=== PATIENT | male | born 1980 | race Caucasian/White ===

== ENCOUNTER 2019-07-11 19:20 | Emergency (ER) | payer OTHER ==
[2019-07-11 19:25] VITALS: RESP 18
[2019-07-11] MEDS ORDERED: MORPHINE SULFATE 4 MG/ML SYRINGE IM STA (19:40)
--- NOTE | 2019-07-11 19:48 | ED ---
Abdominal Pain HPI - General Chief Complaint: Abdominal Pain Stated Complaint: Groin Pain Time Seen by Provider: 07/11/19 19:27 Source: patient Mode of arrival: wheelchair Limitations: no limitations - History of Present Illness Initial Comments: Patient is a 38-year-old male presenting to the emergency Department with complaints of right-sided lower quadrant pain has been increasing throughout today. Patient states he has had mild pain in the same area for many years secondary to a small hernia. Patient states the last month he feels like the pain has been increasing after he is lifting heavy things at work. Patient states then today he has been having severe right groin pain and it is not going away. He denies fever, chills, vomiting, diarrhea. He does admit to history of appendectomy, no other abdominal surgeries. He has no other complaints. Upon arrival to the ER, patient was slightly tachycardia otherwise normal vitals. - Related Data Allergies Allergy/AdvReac Type Severity Reaction Status Date / Time No Known Allergies Allergy Verified 07/11/19 19:25 Review of Systems ROS Statement: Those systems with pertinent positive or pertinent negative responses have been documented in the HPI. ROS Other: All systems not noted in ROS Statement are negative. Past Medical History Additional Past Medical History / Comment(s): HEP C. History of Any Multi-Drug Resistant Organisms: None Reported Additional Past Surgical History / Comment(s): orthopedic surgery Past Psychological History: No Psychological Hx Reported Smoking Status: Current every day smoker Past Alcohol Use History: None Reported Past Drug Use History: None Reported General Exam - General Exam Comments Initial Comments: GENERAL: Patient was teary eyed during exam, in mild distress. HEAD: Atraumatic, normocephalic. EYES: Pupils equal round and reactive to light, extraocular movements intact, sclera anicteric, conjunctiva are normal. ENT: TMs normal, nares patent, oropharynx clear without exudates. Moist mucous membranes. NECK: Normal range of motion, supple without lymphadenopathy or JVD. LUNGS: Breath sounds clear to auscultation bilaterally and equal. No wheezes rales or rhonchi. HEART: Regular rate and rhythm without murmurs, rubs or gallops. ABDOMEN: No abdominal tenderness. Soft, normoactive bowel sounds. No guarding, no rebound. No masses appreciated. : Tenderness into the right groin, no scrotal swelling or erythema. EXTREMITIES: Normal range of motion, no pitting or edema. No clubbing or cyanosis. NEUROLOGICAL: Cranial nerves II through XII grossly intact. Normal speech, normal gait. PSYCH: Normal mood, normal affect. SKIN: Warm, Dry, normal turgor, no rashes or lesions noted. Limitations: no limitations Course Vital Signs 07/11/19 07/11/19 19:21 21:56 Temperature 98.4 F 98 F Pulse Rate 102 H 98 Respiratory 18 18 Rate Blood Pressure 114/80 120/79 O2 Sat by Pulse 99 99 Oximetry Medical Decision Making - Medical Decision Making Patient is a 38-year-old male here for severe right groin pain as been increasing throughout today. He has a history of a mild hernia for many years, as well as appendectomy. Vitals are stable. Ultrasound reveals 2 benign- appearing right groin lymph nodes, no concerning mass or fluid collection. No bowel containing hernia noted. He was given pain control. He states his pain is improved. I discussed with patient that he needs to follow-up with surgery for possible hernia repair. He is in agreement this plan. He is stable for discharge. Case discussed with Dr. Tineo. Disposition Clinical Impression: Right groin pain Disposition: HOME SELF-CARE Condition: Stable Instructions (If sedation given, give patient instructions): Inguinal Hernia (ED) Additional Instructions: Please return to the Emergency Department if symptoms worsen or any other concerns. Is patient prescribed a controlled substance at d/c from ED?: No Referrals: None,Stated [Primary Care Provider] - 1-2 days Darren Whitt MD [Medical Doctor] - 1-2 days
--- NOTE | 2019-07-11 20:36 | US ---
EXAMINATION TYPE: US groin RT DATE OF EXAM: 07/11/2019 COMPARISON: NONE CLINICAL HISTORY: severe pain, possible hernia. Severe pain x 2 months intermittently. Constant pain x 1 day. Possible hernia per order. Appendectomy in 1999. Scanned area of pain right groin. Two hypoechoic areas seen with hyperechoic centers in the right vera in. #1 measures: 0.7 x 0.8 x 0.6 cm. #2 measures: 1.5 x 0.9 x 0.4 cm. Scanned left groin for comparison. No other findings by ultrasound at this time. Technologist tabares two prominent but benign-appearing right groin lymph nodes. No concerning mass or fluid collection. No bowel containing hernia noted. IMPRESSION: As above.
[2019-07-11 21:57] VITALS: BP 120/79; PULSE 98; TEMP 98
== END 2019-07-11 21:58 | disposition home or self-care (01) ==
LOC: EC 19:20
DX: R10.31 Right lower quadrant pain (principal); R59.0 Localized enlarged lymph nodes; B19.20 Unspecified viral hepatitis C without hepatic coma; F17.200 Nicotine dependence, unspecified, uncomplicated; Z98.890 Other specified postprocedural states; Z87.19 Personal history of other diseases of the digestive system; Z90.89 Acquired absence of other organs
CPT/HCPCS: 76882; 96372; 99284; J2270

== ENCOUNTER 2019-07-16 19:25 | Emergency (ER) | payer OTHER ==
[2019-07-16 19:30] VITALS: TEMP 97.9
[2019-07-16] MEDS ORDERED: SODIUM CHLORIDE 0.9% 1,000 ML IV STA (19:42)
[2019-07-16] MEDS ORDERED: ONDANSETRON 4 MG/2 ML VIAL IVP STA (19:42)
[2019-07-16] MEDS ORDERED: HYDROmorphone 0.5 MG/0.5 ML SYRINGE IVP STA ×2 (19:42→20:17)
--- NOTE | 2019-07-16 20:07 | ED ---
Abdominal Pain HPI - General Chief Complaint: Abdominal Pain Stated Complaint: Abdominal Pain Time Seen by Provider: 07/16/19 19:36 Source: patient, RN notes reviewed Mode of arrival: wheelchair Limitations: no limitations - History of Present Illness Initial Comments: 38-year-old male presents emergency Department chief complaint of severe right testicular pain, right groin pain. Patient states she was seen here few days ago was told that he had a hernia. Patient states that today he's had worsening waxing and waning pain. Patient states that he has no dysuria no hematuria denies any history kidney stone. Patient states she has some pain and rates up into his abdomen. Denies any trauma today. He's had a prior appendectomy return or who the surgeon was. Patient denies any back pain. - Related Data Previous Rx's Medication Instructions Recorded Doxycycline Monohydrate [Monodox] 100 mg PO Q12HR #20 cap 07/16/19 Ibuprofen [Motrin] 600 mg PO Q8HR PRN #20 tab 07/16/19 Allergies Allergy/AdvReac Type Severity Reaction Status Date / Time No Known Allergies Allergy Verified 07/16/19 19:34 Review of Systems ROS Statement: Those systems with pertinent positive or pertinent negative responses have been documented in the HPI. ROS Other: All systems not noted in ROS Statement are negative. Past Medical History Additional Past Medical History / Comment(s): HEP C. History of Any Multi-Drug Resistant Organisms: None Reported Additional Past Surgical History / Comment(s): orthopedic surgery Past Psychological History: No Psychological Hx Reported Smoking Status: Current every day smoker Past Alcohol Use History: None Reported Past Drug Use History: None Reported General Exam Limitations: no limitations General appearance: alert, in no apparent distress Head exam: Present: atraumatic, normocephalic, normal inspection Eye exam: Present: normal appearance, PERRL, EOMI. Absent: scleral icterus, conjunctival injection, periorbital swelling Respiratory exam: Present: normal lung sounds bilaterally. Absent: respiratory distress, wheezes, rales, rhonchi, stridor Cardiovascular Exam: Present: regular rate, normal rhythm, normal heart sounds. Absent: systolic murmur, diastolic murmur, rubs, gallop, clicks GI/Abdominal exam: Present: soft, tenderness, normal bowel sounds. Absent: distended, guarding, rebound, rigid exam: Present: testicular tenderness (Right), scrotal swelling. Absent: normal inspection Back exam: Absent: CVA tenderness (R), CVA tenderness (L) Neurological exam: Present: alert, oriented X3 Course Vital Signs 07/16/19 19:27 Temperature 97.9 F Pulse Rate 102 H Respiratory 20 Rate Blood Pressure 122/70 O2 Sat by Pulse 99 Oximetry Medical Decision Making - Medical Decision Making 38-year-old male presented for severe right groin right testicular pain. Patient had recent ultrasound which was reviewed and negative for any acute findings in his groin. Also scrotum shows enlarged epididymis otherwise normal blood flow. CT obtained due to ongoing symptoms no acute findings. Symptoms may related to epididymitis. Patient will be provided antibiotics, pain control return parameters were discussed. - Lab Data Result diagrams: 07/16/19 19:56 07/16/19 19:56 Lab Results 07/16/19 07/16/19 07/16/19 Range/Units 19:56 19:56 19:56 WBC 8.1 (3.8-10.6) k/uL RBC 4.75 (4.30-5.90) m/uL Hgb 14.8 (13.0-17.5) gm/dL Hct 42.9 (39.0-53.0) % MCV 90.3 (80.0-100.0) fL MCH 31.1 (25.0-35.0) pg MCHC 34.4 (31.0-37.0) g/dL RDW 12.7 (11.5-15.5) % Plt Count 330 (150-450) k/uL Neutrophils % 64 % Lymphocytes % 27 % Monocytes % 5 % Eosinophils % 2 % Basophils % 1 % Neutrophils # 5.2 (1.3-7.7) k/uL Lymphocytes # 2.2 (1.0-4.8) k/uL Monocytes # 0.4 (0-1.0) k/uL Eosinophils # 0.2 (0-0.7) k/uL Basophils # 0.1 (0-0.2) k/uL Sodium 136 L (137-145) mmol/L Potassium 3.8 (3.5-5.1) mmol/L Chloride 105 (98-107) mmol/L Carbon Dioxide 24 (22-30) mmol/L Anion Gap 7 mmol/L BUN 13 (9-20) mg/dL Creatinine 0.73 (0.66-1.25) mg/dL Est GFR (CKD-EPI)AfAm >90 (>60 ml/min/1.73 sqM) Est GFR (CKD-EPI)NonAf >90 (>60 ml/min/1.73 sqM) Glucose 184 H (74-99) mg/dL Plasma Lactic Acid Maurice 1.9 (0.7-2.0) mmol/L Calcium 9.5 (8.4-10.2) mg/dL Total Bilirubin 0.5 (0.2-1.3) mg/dL AST 43 (17-59) U/L ALT 77 H (4-49) U/L Alkaline Phosphatase 88 (38-126) U/L Total Protein 6.9 (6.3-8.2) g/dL Albumin 4.2 (3.5-5.0) g/dL Lipase 84 (23-300) U/L Urine Color Urine Appearance (Clear) Urine pH (5.0-8.0) Ur Specific Stephenson (1.001-1.035) Urine Protein (Negative) Urine Glucose (UA) (Negative) Urine Ketones (Negative) Urine Blood (Negative) Urine Nitrite (Negative) Urine Bilirubin (Negative) Urine Urobilinogen (<2.0) mg/dL Ur Leukocyte Esterase (Negative) Urine RBC (0-5) /hpf Urine WBC (0-5) /hpf Amorphous Sediment (None) /hpf 07/16/19 Range/Units 21:05 WBC (3.8-10.6) k/uL RBC (4.30-5.90) m/uL Hgb (13.0-17.5) gm/dL Hct (39.0-53.0) % MCV (80.0-100.0) fL MCH (25.0-35.0) pg MCHC (31.0-37.0) g/dL RDW (11.5-15.5) % Plt Count (150-450) k/uL Neutrophils % % Lymphocytes % % Monocytes % % Eosinophils % % Basophils % % Neutrophils # (1.3-7.7) k/uL Lymphocytes # (1.0-4.8) k/uL Monocytes # (0-1.0) k/uL Eosinophils # (0-0.7) k/uL Basophils # (0-0.2) k/uL Sodium (137-145) mmol/L Potassium (3.5-5.1) mmol/L Chloride (98-107) mmol/L Carbon Dioxide (22-30) mmol/L Anion Gap mmol/L BUN (9-20) mg/dL Creatinine (0.66-1.25) mg/dL Est GFR (CKD-EPI)AfAm (>60 ml/min/1.73 sqM) Est GFR (CKD-EPI)NonAf (>60 ml/min/1.73 sqM) Glucose (74-99) mg/dL Plasma Lactic Acid Maurice (0.7-2.0) mmol/L Calcium (8.4-10.2) mg/dL Total Bilirubin (0.2-1.3) mg/dL AST (17-59) U/L ALT (4-49) U/L Alkaline Phosphatase (38-126) U/L Total Protein (6.3-8.2) g/dL Albumin (3.5-5.0) g/dL Lipase (23-300) U/L Urine Color Light Yellow Urine Appearance Cloudy (Clear) Urine pH 8.0 (5.0-8.0) Ur Specific Stephenson 1.013 (1.001-1.035) Urine Protein Negative (Negative) Urine Glucose (UA) Negative (Negative) Urine Ketones Negative (Negative) Urine Blood Negative (Negative) Urine Nitrite Negative (Negative) Urine Bilirubin Negative (Negative) Urine Urobilinogen <2.0 (<2.0) mg/dL Ur Leukocyte Esterase Negative (Negative) Urine RBC 2 (0-5) /hpf Urine WBC 4 (0-5) /hpf Amorphous Sediment Rare H (None) /hpf Disposition Clinical Impression: Right groin pain, Epididymitis Disposition: HOME SELF-CARE Condition: Stable Instructions (If sedation given, give patient instructions): Epididymitis (ED) Additional Instructions: Please return to the Emergency Department if symptoms worsen or any other co ncerns. Prescriptions: Doxycycline Monohydrate [Monodox] 100 mg PO Q12HR #20 cap Ibuprofen [Motrin] 600 mg PO Q8HR PRN #20 tab PRN Reason: Pain Is patient prescribed a controlled substance at d/c from ED?: No Referrals: None,Stated [Primary Care Provider] - 1-2 days Time of Disposition: 21:53
[2019-07-16 20:10] LABS: Basophils # (A) 0.1 k/uL (0-0.2); Basophils % (A) 1 %; Eosinophils # (A) 0.2 k/uL (0-0.7); Eosinophils % (A) 2 %; HCT 42.9 % (39.0-53.0); HGB 14.8 gm/dL (13.0-17.5); Lymphocytes # (A) 2.2 k/uL (1.0-4.8); Lymphocytes % (A) 27 %; MCH 31.1 pg (25.0-35.0); MCHC 34.4 g/dL (31.0-37.0); MCV 90.3 fL (80.0-100.0); Mean Platelet Volume 7.5; Monocytes # (A) 0.4 k/uL (0-1.0); Monocytes % (A) 5 %; Neutrophils # (A) 5.2 k/uL (1.3-7.7); Neutrophils % (A) 64 %; Platelet Count 330 k/uL (150-450); RBC 4.75 m/uL (4.30-5.90); RDW 12.7 % (11.5-15.5); WBC 8.1 k/uL (3.8-10.6)
[2019-07-16 20:19] LABS: ALT 77 U/L (4-49); AST 43 U/L (17-59); African American GFR (CKD) >90 (>60 ml/min/1.73 sqM); Albumin 4.2 g/dL (3.5-5.0); Alkaline Phosphatase 88 U/L (38-126); Anion Gap 7 mmol/L; Blood Urea Nitrogen 13 mg/dL (9-20); Calcium 9.5 mg/dL (8.4-10.2); Carbon Dioxide 24 mmol/L (22-30); Chloride 105 mmol/L (98-107); Glucose 184 mg/dL (74-99); Non-African American GFR(CKD) >90 (>60 ml/min/1.73 sqM); Potassium 3.8 mmol/L (3.5-5.1); Sodium 136 mmol/L (137-145); Total Bilirubin 0.5 mg/dL (0.2-1.3); Total Protein 6.9 g/dL (6.3-8.2)
--- NOTE | 2019-07-16 21:08 | US ---
EXAMINATION TYPE: US scrotum with doppler. Grayscale and color Doppler Duplex imaging performed of t gonzalez scrotum. DATE OF EXAM: 07/16/2019 COMPARISON: US Groin CLINICAL HISTORY: Extreme right testicular pain. Extreme right testicular pain. Hx appendectomy. EXAM MEASUREMENTS: TESTICLES: Right Testicle: 4.8 x 3.3 x 2.2 cm Left Testicle: 4.6 x 3.1 x 2.4 cm EPIDIDYMIS HEAD: Right Epididymis: 1.2 x 1.5 x 0.8 cm Left Epididymis: 1.2 x 1.7 x 0.7 cm Doppler performed to assess for testicular vascularity; bilateral color flow and waveforms are seen. Presence of hydroceles: Right measurin.2 x 0.9 x 0.7 cm. Presence of varicoceles: Vessels measure up to 1.5 mm on the right and 2.5 mm on the left. Left testicle appears hyperechoic in comparison to right testicle. Epididymis seen laterally appears enlarged and heterogeneous bilaterally. Testicles appear slightly enlarged bilaterally. IMPRESSION: No testicular torsion or mass. Left and right epididymis are upper limit of normal size. I do not see an asymmetric abnormality. Epididymitis not excluded.
[2019-07-16 21:15] LABS: Amorphous Sediment,Urine Rare /hpf; Appearance,Urine Cloudy (Clear); Bilirubin,Urine Negative (Negative); Blood,Urine Negative (Negative); Color,Urine Light Yellow; Glucose,Urine (UA) Negative (Negative); Ketones,Urine Negative (Negative); Leukocyte Esterase,Urine Negative (Negative); Nitrite,Urine Negative (Negative); Protein,Urine Negative (Negative); RBC,Urine 2 /hpf (0-5); Specific Gravity,Urine 1.013 (1.001-1.035); Urobilinogen,Urine <2.0 mg/dL (<2.0); WBC,Urine 4 /hpf (0-5)
--- NOTE | 2019-07-16 21:50 | CT ---
EXAMINATION TYPE: CT abdomen pelvis w con DATE OF EXAM: 07/16/2019 COMPARISON: None HISTORY: Abdominal pain x1 year CT DLP: 743.9 mGycm Automated exposure control for dose reduction was used. CONTRAST: Performed with IV Contrast, patient injected with 100 mL of Isovue 300. Lung bases are clear. There is no pleural effusion. Heart size is normal. There is no pericardial eff usion. Liver spleen stomach gallbladder pancreas appear normal. Bile ducts are not dilated. There is no adrenal mass. Kidneys show satisfactory contrast opacification. There is no hydronephrosi s. There is normal excretion on the delayed images. Bladder distends smoothly. There is no inguinal h ernia. There is no free fluid in the pelvis. There is no mesenteric edema. There is no ascites or free air. There is no sign of a bowel obstructio n. Appendix is not seen. There is no sign of thickened appendix. The lumbar vertebra have normal spacing and alignment. Posterior elements are intact. There is no com pression fracture. The bony pelvis appears intact. IMPRESSION: Negative CT scan abdomen and pelvis.
[2019-07-16] MEDS ORDERED: cefTRIAXone IN SWFI 1,000 MG/10 ML SYRINGE IVP STA (21:51)
[2019-07-16] MEDS ORDERED: AZITHROMYCIN 250 MG TAB PO STA (21:51)
[2019-07-16] MEDS ORDERED: KETOROLAC 30 MG/ML 1 ML VIAL IVP STA (21:53)
[2019-07-16] MEDS ORDERED: ACET/COD 300 MG/30 MG STARTER PACK 6 TAB BTL PO STA (21:53)
[2019-07-16 22:35] VITALS: BP 122/73; PULSE 89; RESP 19
== END 2019-07-16 22:04 | disposition home or self-care (01) ==
LOC: EC 19:25
DX: N45.1 Epididymitis (principal); F17.200 Nicotine dependence, unspecified, uncomplicated
CPT/HCPCS: 36415; 80053; 83605; 83690; 85025; 81001; 93975; 76870; 74177; 99284; 96374; 96375 ×3; 96361 ×2; J2405; J0696; J1885; J1170; Q9967

== ENCOUNTER 2019-09-29 18:20 | Emergency (ER) | payer OTHER ==
[2019-09-29 18:32] VITALS: BP 108/70; PULSE 98; RESP 16; TEMP 98.6
[2019-09-29] MEDS ORDERED: KETOROLAC 60 MG/2 ML VIAL IM STA (18:48)
--- NOTE | 2019-09-29 18:54 | ED ---
General Adult HPI - General Chief complaint: Extremity Injury, Lower Stated complaint: [facility] - lt knee injury Time Seen by Provider: 09/29/19 18:44 Source: patient, RN notes reviewed Mode of arrival: ambulatory Limitations: no limitations - History of Present Illness Initial comments: Patient is a pleasant 38-year-old male presenting to the emergency Department with left knee pain. Patient was at work yesterday when he turned and had sudden discomfort of his left knee. Patient did feel a pop. Patient states walking down the steps today he felt a second pop. Patient has had significant discomfort. Discomfort is mild at rest but moderate to severe with movement of the knee. No history of chronic knee problems. No other area of injury or concern. No swelling. - Related Data Previous Rx's Medication Instructions Recorded Doxycycline Monohydrate [Monodox] 100 mg PO Q12HR #20 cap 07/16/19 Ibuprofen [Motrin] 600 mg PO Q8HR PRN #20 tab 07/16/19 Allergies Allergy/AdvReac Type Severity Reaction Status Date / Time No Known Allergies Allergy Verified 09/29/19 18:32 Review of Systems ROS Statement: Those systems with pertinent positive or pertinent negative responses have been documented in the HPI. ROS Other: All systems not noted in ROS Statement are negative. Constitutional: Denies: fever Eyes: Denies: eye pain ENT: Denies: ear pain Respiratory: Denies: cough Cardiovascular: Denies: chest pain Endocrine: Denies: fatigue Gastrointestinal: Denies: abdominal pain Genitourinary: Denies: dysuria Musculoskeletal: Reports: as per HPI, arthralgia. Denies: back pain Skin: Denies: rash Neurological: Denies: weakness Past Medical History Additional Past Medical History / Comment(s): HEP C. History of Any Multi-Drug Resistant Organisms: None Reported Additional Past Surgical History / Comment(s): orthopedic surgery Past Psychological History: No Psychological Hx Reported Past Alcohol Use History: None Reported Past Drug Use History: None Reported General Exam Limitations: no limitations General appearance: alert, in no apparent distress Head exam: Present: normocephalic Eye exam: Present: normal appearance Neck exam: Present: normal inspection Respiratory exam: Present: normal lung sounds bilaterally Cardiovascular Exam: Present: regular rate, normal rhythm Expanded Peripheral pulses: 2+: Dorsalis Pedis (L) GI/Abdominal exam: Present: soft. Absent: tenderness Extremities exam: Present: tenderness (Tenderness in the region of the medial meniscus.), other (Distally the extremity is neurovascular intact.). Absent: full ROM (Limited range of motion left knee secondary to pain.), calf tenderness Neurological exam: Present: alert. Absent: motor sensory deficit Psychiatric exam: Present: normal affect, normal mood Skin exam: Present: normal color Course Vital Signs 09/29/19 18:29 Temperature 98.6 F Pulse Rate 98 Respiratory 16 Rate Blood Pressure 108/70 O2 Sat by Pulse 97 Oximetry Medical Decision Making - Medical Decision Making Patient reevaluated and updated. Knee immobilizer ordered. - Radiology Data Radiology results: image reviewed (X-ray left knee reveals no acute process) Disposition Clinical Impression: Knee injury Disposition: HOME SELF-CARE Condition: Stable Instructions (If sedation given, give patient instructions): Knee Pain (ED) Additional Instructions: Please follow-up [facility] in the next day or 2 for recheck. [id number] Motrin as needed. Ice to affected area. Use knee immobilizer, provided. If symptoms continue you will likely need further evaluation including orthopedic evaluation or further imaging. Return for increased pain, swelling, fever, worsening or change in symptoms or other concerns. Is patient prescribed a controlled substance at d/c from ED?: No Referrals: Johnnie Guardado DO [Medical Doctor] - 1-2 days Time of Disposition: 20:07
--- NOTE | 2019-09-29 19:25 | XR ---
EXAMINATION TYPE: XR knee complete LT DATE OF EXAM: 09/29/2019 COMPARISON: NONE HISTORY: Knee pain TECHNIQUE: 3 views FINDINGS: I see no fracture nor dislocation. Joint spaces are normal. There is no sign of knee joint effusion. IMPRESSION: Negative left knee exam.
[2019-09-29] MEDS ORDERED: ACET/COD 300 MG/30 MG STARTER PACK 6 TAB BTL PO STA (20:07)
== END 2019-09-29 20:27 | disposition home or self-care (01) ==
LOC: EC 18:20
DX: S89.92XA Unspecified injury of left lower leg, initial encounter (principal); M25.562 Pain in left knee; X50.9XXA Other and unspecified overexertion or strenuous movements or postures, initial encounter; Y92.69 Other specified industrial and construction area as the place of occurrence of the external cause
CPT/HCPCS: 73562; 99283; 96372; L1830 ×2; J1885

== ENCOUNTER 2020-03-27 08:44 | Emergency (ER) | payer OTHER ==
[2020-03-27 08:53] VITALS: BP 128/80; PULSE 122; RESP 18; TEMP 98.4
--- NOTE | 2020-03-27 09:06 | ED ---
Upper Extremity HPI - General Chief Complaint: Extremity Injury, Upper Stated Complaint: slip & fall/elbow pain Time Seen by Provider: 03/27/20 08:53 Source: patient, RN notes reviewed Mode of arrival: ambulatory Limitations: no limitations - History of Present Illness Initial Comments: 39-year-old male presents emergency Department with chief complaint of left elbow injury. Patient states that he slipped on her driveway yesterday falling landing onto his left elbow on landscaping bricks. Patient states that it was sore but has worsened throughout the night. Patient states he bumped it on door this morning which increases pain, swelling. Patient is right-hand dominant no prior left elbow injuries. denies any paresthesias no other injuries noted from his fall. - Related Data Previous Rx's Medication Instructions Recorded Doxycycline Monohydrate [Monodox] 100 mg PO Q12HR #20 cap 07/16/19 Ibuprofen [Motrin] 600 mg PO Q8HR PRN #20 tab 07/16/19 Ibuprofen [Motrin] 600 mg PO Q8HR PRN #20 tab 03/27/20 Allergies Allergy/AdvReac Type Severity Reaction Status Date / Time No Known Allergies Allergy Verified 03/27/20 08:53 Review of Systems ROS Statement: Those systems with pertinent positive or pertinent negative responses have been documented in the HPI. ROS Other: All systems not noted in ROS Statement are negative. Past Medical History Additional Past Medical History / Comment(s): HEP C. History of Any Multi-Drug Resistant Organisms: None Reported Past Surgical History: Appendectomy Additional Past Surgical History / Comment(s): orthopedic surgery Past Psychological History: No Psychological Hx Reported Smoking Status: Current every day smoker Past Alcohol Use History: Rare Past Drug Use History: Marijuana General Exam Limitations: no limitations General appearance: alert, in no apparent distress Head exam: Present: atraumatic, normocephalic, normal inspection Eye exam: Present: normal appearance, PERRL, EOMI. Absent: scleral icterus, conjunctival injection, periorbital swelling ENT exam: Present: normal exam, normal oropharynx, mucous membranes moist Neck exam: Present: normal inspection, full ROM. Absent: tenderness, meningismus, lymphadenopathy Respiratory exam: Present: normal lung sounds bilaterally. Absent: respiratory distress, wheezes, rales, rhonchi, stridor Cardiovascular Exam: Present: normal rhythm, tachycardia, normal heart sounds. Absent: systolic murmur, diastolic murmur, rubs, gallop, clicks Extremities exam: Present: other (Left elbow there is moderate swelling, severe times with palpation, neurovascular intact left arm with equal radial pulses Refill less than 2 seconds of all digits, patient has limited range of motion of the left elbow secondary to pain there is no tenderness at the left distal forearm or shoulder.) Course Vital Signs 03/27/20 08:46 Temperature 98.4 F Pulse Rate 122 H Respiratory 18 Rate Blood Pressure 128/80 O2 Sat by Pulse 100 Oximetry Medical Decision Making - Medical Decision Making X-ray was reviewed and read by radiologist as no acute fracture. Patient to be discharged with anti-inflammatories will follow-up with orthopedics on Monday if no improvement return parameters were discussed. Disposition Clinical Impression: Fall, Left elbow contusion Disposition: HOME SELF-CARE Condition: Stable Instructions (If sedation given, give patient instructions): Contusion in Adults (ED) Additional Instructions: Please return to the Emergency Department if symptoms worsen or any other concerns. Prescriptions: Ibuprofen [Motrin] 600 mg PO Q8HR PRN #20 tab PRN Reason: Pain Is patient prescribed a controlled substance at d/c from ED?: No Referrals: None,Stated [Primary Care Provider] - 1-2 days Trey Chin MD [STAFF PHYSICIAN] - 1-2 days Time of Disposition: 09:27
--- NOTE | 2020-03-27 09:20 | XR ---
EXAMINATION TYPE: XR elbow complete LT DATE OF EXAM: 03/27/2020 COMPARISON: NONE HISTORY: Pain FINDINGS: Three views of the elbow demonstrate no pathologic joint effusion. The osseous structures are intact . There is no acute fracture or dislocation. Tiny olecranon spur. IMPRESSION: 1. No acute fracture or dislocation. If symptoms persist follow-up study in 7 to 10 days could be ob tained.
[2020-03-27] MEDS ORDERED: ACET/COD 300 MG/30 MG STARTER PACK 6 TAB BTL PO STA (09:25)
== END 2020-03-27 09:39 | disposition home or self-care (01) ==
LOC: EC 08:44
DX: S50.02XA Contusion of left elbow, initial encounter (principal); F17.200 Nicotine dependence, unspecified, uncomplicated; W00.0XXA Fall on same level due to ice and snow, initial encounter
CPT/HCPCS: 99283

== ENCOUNTER 2020-05-06 08:02 | Emergency (ER) | payer OTHER ==
[2020-05-06 08:16] VITALS: RESP 18
[2020-05-06] MEDS ORDERED: PHENAZOPYRIDINE 200 MG TAB PO STA (08:32)
--- NOTE | 2020-05-06 08:34 | ED ---
General Adult HPI - General Chief complaint: Urogenital Stated complaint: STD check Time Seen by Provider: 05/06/20 08:18 Source: patient, RN notes reviewed Mode of arrival: ambulatory Limitations: no limitations - History of Present Illness Initial comments: 39-year-old male presents emergency Department chief complaint of dysuria. Patient states started 4 days ago. Patient states she does have some penile drainage. Patient states it de anda constantly. Patient does admit to unprotected sex and concerned about possible STD including gonorrhea and chlamydia. Patient denies any lesions or sores on his penis. Patient denies any other complaints no abdominal pain no flank pain no fevers or chills. - Related Data Previous Rx's Medication Instructions Recorded Ciprofloxacin HCl [Cipro] 500 mg PO Q12HR #20 tablet 05/06/20 Allergies Allergy/AdvReac Type Severity Reaction Status Date / Time No Known Allergies Allergy Verified 05/06/20 09:01 Review of Systems ROS Statement: Those systems with pertinent positive or pertinent negative responses have been documented in the HPI. ROS Other: All systems not noted in ROS Statement are negative. Past Medical History Additional Past Medical History / Comment(s): HEP C. History of Any Multi-Drug Resistant Organisms: None Reported Past Surgical History: Appendectomy, Orthopedic Surgery Additional Past Surgical History / Comment(s): orthopedic surgery Past Psychological History: No Psychological Hx Reported Smoking Status: Current every day smoker Past Alcohol Use History: Rare Past Drug Use History: Marijuana General Exam Limitations: no limitations General appearance: alert, in no apparent distress Head exam: Present: atraumatic, normocephalic, normal inspection Eye exam: Present: normal appearance, PERRL, EOMI. Absent: scleral icterus, conjunctival injection, periorbital swelling Neck exam: Present: normal inspection. Absent: tenderness, meningismus, lymphadenopathy Respiratory exam: Present: normal lung sounds bilaterally. Absent: respiratory distress, wheezes, rales, rhonchi, stridor Cardiovascular Exam: Present: regular rate, normal rhythm, normal heart sounds. Absent: systolic murmur, diastolic murmur, rubs, gallop, clicks GI/Abdominal exam: Present: soft, normal bowel sounds. Absent: distended, tenderness, guarding, rebound, rigid exam: Present: urethral discharge, circumcision, other (Mild swelling just proximal to the glans, tattoo noted). Absent: testicular tenderness, scrotal swelling, vertical testicular lie Neurological exam: Present: alert Skin exam: Present: warm, dry, intact, normal color. Absent: rash Course Vital Signs 05/06/20 05/06/20 08:11 09:16 Temperature 98.5 F Pulse Rate 100 Respiratory 18 18 Rate Blood Pressure 134/85 O2 Sat by Pulse 98 Oximetry Medical Decision Making - Medical Decision Making Patient's urinalysis shows large amount of bacteria. Patient did have some unprotected sex and concern for STDs. Patient we treated for gonorrhea chlamydi a. Patient will be given 1 g for Rocephin for possible urinary tract infection. Patient will be discharged on ciprofloxacin return parameters discussed. - Lab Data Lab Results 05/06/20 Range/Units 08:44 Urine Color Yellow Urine Appearance Cloudy (Clear) Urine pH 6.5 (5.0-8.0) Ur Specific [place] 1.024 (1.001-1.035) Urine Protein Trace H (Negative) Urine Glucose (UA) Negative (Negative) Urine Ketones Negative (Negative) Urine Blood Small H (Negative) Urine Nitrite Negative (Negative) Urine Bilirubin Negative (Negative) Urine Urobilinogen 2.0 (<2.0) mg/dL Ur Leukocyte Esterase Large H (Negative) Urine RBC 13 H (0-5) /hpf Urine WBC >182 H (0-5) /hpf Urine WBC Clumps Few H (None) /hpf Urine Mucus Occasional H (None) /hpf Urine Sperm Rare (None) /hpf Disposition Clinical Impression: UTI (urinary tract infection) Disposition: HOME SELF-CARE Condition: Stable Instructions (If sedation given, give patient instructions): Urinary Tract Infection in Men (ED) Additional Instructions: Please return to the Emergency Department if symptoms worsen or any other concerns. Prescriptions: Ciprofloxacin HCl [Cipro] 500 mg PO Q12HR #20 tablet Is patient prescribed a controlled substance at d/c from ED?: No Referrals: None,Stated [Primary Care Provider] - 1-2 days Time of Disposition: 09:38
[2020-05-06 09:30] LABS: Appearance,Urine Cloudy (Clear); Bilirubin,Urine Negative (Negative); Blood,Urine Small (Negative); Color,Urine Yellow; Glucose,Urine (UA) Negative (Negative); Ketones,Urine Negative (Negative); Leukocyte Esterase,Urine Large (Negative); Mucus,Urine Occasional /hpf; Nitrite,Urine Negative (Negative); PH, Urine 6.5 (5.0-8.0); Protein,Urine Trace (Negative); RBC,Urine 13 /hpf (0-5); Specific Gravity,Urine 1.024 (1.001-1.035); Sperm,Urine Rare /hpf; WBC,Urine >182 /hpf (0-5)
[2020-05-06] MEDS ORDERED: cefTRIAXone 1,000 MG VIAL (IM USE) IM STA (09:37)
[2020-05-06] MEDS ORDERED: AZITHROMYCIN 250 MG TAB PO STA (09:37)
[2020-05-06 10:09] VITALS: BP 117/81; PULSE 85; TEMP 98.8
[2020-05-07 15:30] LABS: C. trachomatis,PCR Negative (Neg,Equiv); Chlamydia trachomatis Source Urine; N. gonorrhoeae,PCR Positive (Neg,Equiv); Neisseria Source Urine
== END 2020-05-06 10:15 | disposition home or self-care (01) ==
LOC: EC 08:02
DX: N39.0 Urinary tract infection, site not specified (principal); F17.200 Nicotine dependence, unspecified, uncomplicated; F12.90 Cannabis use, unspecified, uncomplicated; Z90.49 Acquired absence of other specified parts of digestive tract
CPT/HCPCS: 81001; 87491; 87591; 87086; 99283; 96372; J0696

== ENCOUNTER 2020-06-09 05:43 | Emergency (ER) | payer OTHER ==
[2020-06-09 06:06] VITALS: PULSE 120; RESP 36; TEMP 98.1
[2020-06-09 06:41] VITALS: BP 166/105
[2020-06-09] MEDS ORDERED: SODIUM CHLORIDE 0.9% 1,000 ML IV STA (06:55)
[2020-06-09] MEDS ORDERED: HYDROmorphone 0.5 MG/0.5 ML SYRINGE IVP STA ×2 (06:56→09:03)
--- NOTE | 2020-06-09 07:07 | ED ---
General Adult HPI - General Chief complaint: Abdominal Pain Stated complaint: Groin Pain Time Seen by Provider: 06/09/20 06:50 Source: patient, RN notes reviewed Mode of arrival: ambulatory Limitations: no limitations - History of Present Illness Initial comments: 39-year-old male with a past medical history of hepatitis C presents to the emergency room for a chief complaint of right groin pain. Patient reports this is an ongoing for several months. Patient states it worsened in the past few days. States that he went to [facility] and they told him nothing was wrong. Patient rates it does radiate into his right testicle. States walking worsens his pain. Patient was recently treated for gonorrhea and had a confirmed negative test result. States he has not been with that partner again.Patient has no other complaints at this time including shortness of breath, chest pain, nausea or vomiting, headache, or visual changes. - Related Data Home Medications Medication Instructions Recorded Confirmed No Known Home Medications 06/09/20 06/09/20 Allergies Allergy/AdvReac Type Severity Reaction Status Date / Time No Known Allergies Allergy Verified 06/09/20 08:04 Review of Systems ROS Statement: Those systems with pertinent positive or pertinent negative responses have been documented in the HPI. ROS Other: All systems not noted in ROS Statement are negative. Past Medical History Additional Past Medical History / Comment(s): HEP C. History of Any Multi-Drug Resistant Organisms: None Reported Past Surgical History: Appendectomy, Orthopedic Surgery Additional Past Surgical History / Comment(s): orthopedic surgery Past Psychological History: No Psychological Hx Reported Smoking Status: Current every day smoker Past Alcohol Use History: None Reported, Rare Past Drug Use History: Marijuana General Exam Limitations: no limitations General appearance: alert Head exam: Present: atraumatic, normocephalic, normal inspection Eye exam: Present: normal appearance, PERRL, EOMI. Absent: scleral icterus, conjunctival injection, periorbital swelling ENT exam: Present: normal exam, mucous membranes moist Neck exam: Present: normal inspection. Absent: tenderness, meningismus, lymphadenopathy Respiratory exam: Present: normal lung sounds bilaterally. Absent: respiratory distress, wheezes, rales, rhonchi, stridor Cardiovascular Exam: Present: regular rate, normal rhythm, normal heart sounds. Absent: systolic murmur, diastolic murmur, rubs, gallop, clicks GI/Abdominal exam: Present: soft, tenderness (Right groin tenderness. No abdominal tenderness.), normal bowel sounds. Absent: guarding, rebound Neurological exam: Present: alert Course Vital Signs 06/09/20 06:02 Temperature 98.1 F Pulse Rate 120 H Respiratory 36 H Rate Blood Pressure 166/105 O2 Sat by Pulse 98 Oximetry Medical Decision Making - Medical Decision Making Vitals are stable. Patient initially tachycardic and tachypneic likely secondary to pain, HPI and physical exam as documented. Patient does have some groin and testicular tenderness without erythema edema. No evidence of hernia on exam. CBC CMP unremarkable. Lactic acid is normal. I did do ultrasounds of the groin and scrotum which were both normal. Patient was given pain medication. I did order a CAT scan to further evaluate which patient refused once general technician came to get him. He states the pain is gone. He does not want any further evaluation. requesting discharge. I did discuss returning if he has any worsening symptoms and otherwise following up with primary care. - Lab Data Result diagrams: 06/09/20 07:51 06/09/20 07:51 Lab Results 06/09/20 06/09/20 06/09/20 Range/Units 07:51 07:51 07:51 WBC 9.3 (3.8-10.6) k/uL RBC 5.11 (4.30-5.90) m/uL Hgb 15.8 (13.0-17.5) gm/dL Hct 44.5 (39.0-53.0) % MCV 87.2 (80.0-100.0) fL MCH 31.0 (25.0-35.0) pg MCHC 35.5 (31.0-37.0) g/dL RDW 12.3 (11.5-15.5) % Plt Count 441 (150-450) k/uL MPV 7.0 Neutrophils % 62 % Lymphocytes % 27 % Monocytes % 7 % Eosinophils % 1 % Basophils % 1 % Neutrophils # 5.7 (1.3-7.7) k/uL Lymphocytes # 2.5 (1.0-4.8) k/uL Monocytes # 0.7 (0-1.0) k/uL Eosinophils # 0.1 (0-0.7) k/uL Basophils # 0.1 (0-0.2) k/uL Sodium 137 (137-145) mmol/L Potassium 4.3 (3.5-5.1) mmol/L Chloride 107 (98-107) mmol/L Carbon Dioxide 19 L (22-30) mmol/L Anion Gap 11 mmol/L BUN 10 (9-20) mg/dL Creatinine 0.81 (0.66-1.25) mg/dL Est GFR (CKD-EPI)AfAm >90 (>60 ml/min/1.73 sqM) Est GFR (CKD-EPI)NonAf >90 (>60 ml/min/1.73 sqM) Glucose 107 H (74-99) mg/dL Plasma Lactic Acid [place] 1.8 (0.7-2.0) mmol/L Calcium 9.6 (8.4-10.2) mg/dL Total Bilirubin 1.2 (0.2-1.3) mg/dL AST 40 (17-59) U/L ALT 66 H (4-49) U/L Alkaline Phosphatase 87 (38-126) U/L Total Protein 7.9 (6.3-8.2) g/dL Albumin 4.7 (3.5-5.0) g/dL Amylase 36 (30-110) U/L Lipase 57 (23-300) U/L Urine Color Urine Appearance (Clear) Urine pH (5.0-8.0) Ur Specific [place] (1.001-1.035) Urine Protein (Negative) Urine Glucose (UA) (Negative) Urine Ketones (Negative) Urine Blood (Negative) Urine Nitrite (Negative) Urine Bilirubin (Negative) Urine Urobilinogen (<2.0) mg/dL Ur Leukocyte Esterase (Negative) 06/09/20 Range/Units 09:02 WBC (3.8-10.6) k/uL RBC (4.30-5.90) m/uL Hgb (13.0-17.5) gm/dL Hct (39.0-53.0) % MCV (80.0-100.0) fL MCH (25.0-35.0) pg MCHC (31.0-37.0) g/dL RDW (11.5-15.5) % Plt Count (150-450) k/uL MPV Neutrophils % % Lymphocytes % % Monocytes % % Eosinophils % % Basophils % % Neutrophils # (1.3-7.7) k/uL Lymphocytes # (1.0-4.8) k/uL Monocytes # (0-1.0) k/uL Eosinophils # (0-0.7) k/uL Basophils # (0-0.2) k/uL Sodium (137-145) mmol/L Potassium (3.5-5.1) mmol/L Chloride (98-107) mmol/L Carbon Dioxide (22-30) mmol/L Anion Gap mmol/L BUN (9-20) mg/dL Creatinine (0.66-1.25) mg/dL Est GFR (CKD-EPI)AfAm (>60 ml/min/1.73 sqM) Est GFR (CKD-EPI)NonAf (>60 ml/min/1.73 sqM) Glucose (74-99) mg/dL Plasma Lactic Acid Maurice (0.7-2.0) mmol/L Calcium (8.4-10.2) mg/dL Total Bilirubin (0.2-1.3) mg/dL AST (17-59) U/L ALT (4-49) U/L Alkaline Phosphatase (38-126) U/L Total Protein (6.3-8.2) g/dL Albumin (3.5-5.0) g/dL Amylase (30-110) U/L Lipase (23-300) U/L Urine Color Light Yellow Urine Appearance Clear (Clear) Urine pH 6.5 (5.0-8.0) Ur Specific [place] 1.003 (1.001-1.035) Urine Protein Negative (Negative) Urine Glucose (UA) Negative (Negative) Urine Ketones Negative (Negative) Urine Blood Negative (Negative) Urine Nitrite Negative (Negative) Urine Bilirubin Negative (Negative) Urine Urobilinogen <2.0 (<2.0) mg/dL Ur Leukocyte Esterase Negative (Negative) Disposition Clinical Impression: Right groin pain Disposition: HOME SELF-CARE Condition: Good Instructions (If sedation given, give patient instructions): Groin Pain (ED) Additional Instructions: Please follow up with primary care in 1-2 days. Return to the emergency room for any worsening symptoms. Is patient prescribed a controlled substance at d/c from ED?: No Referrals: Donaldo Ruvalcaba [STAFF PHYSICIAN] - 1-2 days Time of Disposition: 10:49
[2020-06-09 08:39] LABS: Basophils # (A) 0.1 k/uL (0-0.2); Basophils % (A) 1 %; Eosinophils # (A) 0.1 k/uL (0-0.7); Eosinophils % (A) 1 %; HCT 44.5 % (39.0-53.0); HGB 15.8 gm/dL (13.0-17.5); Lymphocytes # (A) 2.5 k/uL (1.0-4.8); Lymphocytes % (A) 27 %; MCHC 35.5 g/dL (31.0-37.0); MCV 87.2 fL (80.0-100.0); Monocytes # (A) 0.7 k/uL (0-1.0); Monocytes % (A) 7 %; Neutrophils # (A) 5.7 k/uL (1.3-7.7); Neutrophils % (A) 62 %; Platelet Count 441 k/uL (150-450); RBC 5.11 m/uL (4.30-5.90); RDW 12.3 % (11.5-15.5); WBC 9.3 k/uL (3.8-10.6)
[2020-06-09 08:59] LABS: ALT 66 U/L (4-49); African American GFR (CKD) >90 (>60 ml/min/1.73 sqM); Albumin 4.7 g/dL (3.5-5.0); Amylase 36 U/L (30-110); Anion Gap 11 mmol/L; Blood Urea Nitrogen 10 mg/dL (9-20); Calcium 9.6 mg/dL (8.4-10.2); Carbon Dioxide 19 mmol/L (22-30); Chloride 107 mmol/L (98-107); Glucose 107 mg/dL (74-99); Lipase 57 U/L (23-300); Non-African American GFR(CKD) >90 (>60 ml/min/1.73 sqM); Sodium 137 mmol/L (137-145); Total Bilirubin 1.2 mg/dL (0.2-1.3); Total Protein 7.9 g/dL (6.3-8.2)
[2020-06-09 09:00] LABS: AST 40 U/L (17-59); Alkaline Phosphatase 87 U/L (38-126); Potassium 4.3 mmol/L (3.5-5.1)
[2020-06-09 09:20] LABS: Appearance,Urine Clear (Clear); Bilirubin,Urine Negative (Negative); Blood,Urine Negative (Negative); Color,Urine Light Yellow; Glucose,Urine (UA) Negative (Negative); Ketones,Urine Negative (Negative); Leukocyte Esterase,Urine Negative (Negative); Nitrite,Urine Negative (Negative); PH, Urine 6.5 (5.0-8.0); Protein,Urine Negative (Negative); Specific Gravity,Urine 1.003 (1.001-1.035); Urobilinogen,Urine <2.0 mg/dL (<2.0)
--- NOTE | 2020-06-09 09:38 | US ---
EXAMINATION TYPE: US groin RT DATE OF EXAM: 06/09/2020 COMPARISON: NONE CLINICAL HISTORY: pain. Pain Scanned area of pain no abnormalities seen. IMPRESSION: 1. Negative ultrasound right groin region
--- NOTE | 2020-06-09 09:39 | US ---
EXAMINATION TYPE: US scrotum with doppler. Grayscale and color Doppler Duplex imaging performed of t gonzalez scrotum. DATE OF EXAM: 06/09/2020 COMPARISON: NONE CLINICAL HISTORY: pain. pain EXAM MEASUREMENTS: TESTICLES: Right Testicle: 3.2 x 2.8 x 3.5 cm Left Testicle: 3.7 x 2.6 x 3.3 cm EPIDIDYMIS HEAD: Right Epididymis: .9 x .6 x .8 cm Left Epididymis: Not well visualized Doppler performed to assess for testicular vascularity; good bilateral color flow and waveforms are s een. There is no evidence of testicular torsion. Presence of hydroceles: No Presence of varicoceles: No IMPRESSION: 1. Normal scrotal ultrasound
[2020-06-09] MEDS ORDERED: KETOROLAC 15 MG/ML 1 ML VIAL IVP STA (10:02)
[2020-06-10 16:40] LABS: C. trachomatis,PCR Negative (Neg,Equiv); Chlamydia trachomatis Source Urine; N. gonorrhoeae,PCR Negative (Neg,Equiv); Neisseria Source Urine
== END 2020-06-09 11:26 | disposition home or self-care (01) ==
LOC: EC 05:43
DX: R10.30 Lower abdominal pain, unspecified (principal); F17.200 Nicotine dependence, unspecified, uncomplicated; F12.90 Cannabis use, unspecified, uncomplicated
CPT/HCPCS: 36415; 80053; 82150; 83605; 83690; 85025; 81003; 87491; 87591; 93975; 76870; 76882; 99284; 96374; 96375; 96376; J1885; J1170; 87661

== ENCOUNTER 2020-11-28 16:49 | Emergency (ER) | payer OTHER ==
[2020-11-28 16:52] VITALS: RESP 18
[2020-11-28] MEDS ORDERED: KETOROLAC 15 MG/ML 1 ML VIAL IVP STA (18:26)
[2020-11-28] MEDS ORDERED: SODIUM CHLORIDE 0.9% 1,000 ML IV STA (18:26)
--- NOTE | 2020-11-28 18:33 | ED ---
General Adult HPI - General Chief complaint: Abdominal Pain Stated complaint: Groin Pain Time Seen by Provider: 11/28/20 18:03 Source: patient, RN notes reviewed, old records reviewed Mode of arrival: wheelchair Limitations: no limitations - History of Present Illness Initial comments: 39-year-old male patient, alert and oriented 4 presents to the emergency room with right groin pain and right testicle pain. Patient states that he has had this in the past and was told he had an inguinal hernia. He states that the pain this time is constant he cannot get comfortable. He also states that he found a left testicular lump couple of weeks ago that is nontender. He denies any dysuria. He denies any penile discharge or risk of sexually transmitted disease. He denies any fevers or nausea and vomiting. Location: genitals (Testicle and groin), right Consistency: constant Improves with: none Worsens with: other (Palpation) Associated Symptoms: denies other symptoms Treatments Prior to Arrival: none - Related Data Previous Rx's Medication Instructions Recorded Ibuprofen [Motrin] 600 mg PO Q8HR PRN #30 tab 11/28/20 Allergies Allergy/AdvReac Type Severity Reaction Status Date / Time No Known Allergies Allergy Verified 11/28/20 16:50 Review of Systems ROS Statement: Those systems with pertinent positive or pertinent negative responses have been documented in the HPI. ROS Other: All systems not noted in ROS Statement are negative. Past Medical History Additional Past Medical History / Comment(s): HEP C. History of Any Multi-Drug Resistant Organisms: None Reported Past Surgical History: Appendectomy, Orthopedic Surgery Additional Past Surgical History / Comment(s): orthopedic surgery Past Psychological History: No Psychological Hx Reported Smoking Status: Current every day smoker Past Alcohol Use History: None Reported, Rare Past Drug Use History: Marijuana General Exam Limitations: no limitations General appearance: alert, in no apparent distress Head exam: Present: atraumatic, normocephalic, normal inspection Eye exam: Present: normal appearance, PERRL, EOMI. Absent: scleral icterus, conjunctival injection, periorbital swelling ENT exam: Present: normal exam, normal oropharynx, mucous membranes moist Neck exam: Present: normal inspection, full ROM. Absent: tenderness, meningismus, lymphadenopathy Respiratory exam: Present: normal lung sounds bilaterally. Absent: respiratory distress, wheezes, rales, rhonchi, stridor Cardiovascular Exam: Present: regular rate, normal rhythm, normal heart sounds. Absent: systolic murmur, diastolic murmur, rubs, gallop, clicks GI/Abdominal exam: Present: soft, normal bowel sounds. Absent: distended, tenderness, guarding, rebound, rigid exam: Present: normal inspection, testicular tenderness (Right testicle), circumcision, other (Left testicular mass). Absent: urethral discharge External exam: Present: normal external exam. Absent: erythema, swelling Extremities exam: Present: normal inspection, full ROM, normal capillary refill. Absent: tenderness, pedal edema, joint swelling, calf tenderness Back exam: Present: normal inspection, full ROM. Absent: tenderness Neurological exam: Present: alert, oriented X3, CN II-XII intact Psychiatric exam: Present: normal affect, normal mood, anxious Skin exam: Present: warm, dry, intact, normal color. Absent: rash, cyanosis, diaphoretic Course Vital Signs 11/28/20 11/28/20 16:50 20:29 Temperature 98.2 F 98.3 F Pulse Rate 92 89 Respiratory 18 18 Rate Blood Pressure 108/72 110/76 O2 Sat by Pulse 98 98 Oximetry Medical Decision Making - Medical Decision Making Ultrasound of the scrotum shows no testicular torsion or mass. There is a mild right-sided hydrocele. There is no evidence of hernia. Ultrasound of the right groin shows an ordinary appearing right inguinal lymph node demonstrated measuring 3 x 0.7 x 2.1. Patient again denies any risk of sexually transmitted diseases, denies any dysuria or penile discharge. He has been afebrile. He does state that he has some pain relief. He was advised to wear supportive underwear and follow-up with urology, return to the emergency room with any new or worsening symptoms. Case discussed with Dr. Connell - Lab Data Result diagrams: 11/28/20 19:11/28/20 19:07 Lab Results 11/28/20 11/28/20 11/28/20 Range/Units 19:07 19:07 19:07 WBC 8.6 (3.8-10.6) k/uL RBC 5.09 (4.30-5.90) m/uL Hgb 15.6 (13.0-17.5) gm/dL Hct 45.8 (39.0-53.0) % MCV 90.0 (80.0-100.0) fL MCH 30.6 (25.0-35.0) pg MCHC 34.0 (31.0-37.0) g/dL RDW 12.5 (11.5-15.5) % Plt Count 380 (150-450) k/uL MPV 7.1 Neutrophils % 63 % Lymphocytes % 24 % Monocytes % 7 % Eosinophils % 3 % Basophils % 1 % Neutrophils # 5.4 (1.3-7.7) k/uL Lymphocytes # 2.1 (1.0-4.8) k/uL Monocytes # 0.6 (0-1.0) k/uL Eosinophils # 0.3 (0-0.7) k/uL Basophils # 0.1 (0-0.2) k/uL Sodium 136 L (137-145) mmol/L Potassium 4.1 (3.5-5.1) mmol/L Chloride 101 (98-107) mmol/L Carbon Dioxide 29 (22-30) mmol/L Anion Gap 6 mmol/L BUN 9 (9-20) mg/dL Creatinine 0.83 (0.66-1.25) mg/dL Est GFR (CKD-EPI)AfAm >90 (>60 ml/min/1.73 sqM) Est GFR (CKD-EPI)NonAf >90 (>60 ml/min/1.73 sqM) Glucose 102 H (74-99) mg/dL Calcium 9.6 (8.4-10.2) mg/dL Total Bilirubin 0.6 (0.2-1.3) mg/dL AST 49 (17-59) U/L ALT 75 H (4-49) U/L Alkaline Phosphatase 128 H (38-126) U/L Total Protein 7.6 (6.3-8.2) g/dL Albumin 4.4 (3.5-5.0) g/dL Urine Color Light Yellow Urine Appearance Cloudy (Clear) Urine pH 6.5 (5.0-8.0) Ur Specific [place] 1.007 (1.001-1.035) Urine Protein Trace H (Negative) Urine Glucose (UA) Negative (Negative) Urine Ketones Negative (Negative) Urine Blood Negative (Negative) Urine Nitrite Negative (Negative) Urine Bilirubin Negative (Negative) Urine Urobilinogen <2.0 (<2.0) mg/dL Ur Leukocyte Esterase Negative (Negative) Urine RBC <1 (0-5) /hpf Urine WBC 3 (0-5) /hpf Ur Squamous Epith Cells <1 (0-4) /hpf Amorphous Sediment Moderate H (None) /hpf Urine Bacteria Occasional H (None) /hpf Urine Mucus Many H (None) /hpf Disposition Clinical Impression: Testicular pain, right Disposition: HOME SELF-CARE Condition: Good Instructions (If sedation given, give patient instructions): Testicle Pain (ED) Additional Instructions: Use Motrin as prescribed and warm compresses. Wear underwear with scrotal elevation, no boxers. Follow-up with urology for the continuation of care. Return to the emergency room with any new or worsening symptoms including increased pain, fevers or difficulty urinating. Prescriptions: Ibuprofen [Motrin] 600 mg PO Q8HR PRN #30 tab PRN Reason: Pain Is patient prescribed a controlled substance at d/c from ED?: No Referrals: None,Stated [Primary Care Provider] - 1-2 days Martin Knight MD [STAFF PHYSICIAN] - 1-2 days Time of Disposition: 20:12
[2020-11-28 19:22] LABS: Basophils # (A) 0.1 k/uL (0-0.2); Basophils % (A) 1 %; Eosinophils # (A) 0.3 k/uL (0-0.7); Eosinophils % (A) 3 %; HCT 45.8 % (39.0-53.0); HGB 15.6 gm/dL (13.0-17.5); Lymphocytes # (A) 2.1 k/uL (1.0-4.8); Lymphocytes % (A) 24 %; MCH 30.6 pg (25.0-35.0); Mean Platelet Volume 7.1; Monocytes # (A) 0.6 k/uL (0-1.0); Monocytes % (A) 7 %; Neutrophils # (A) 5.4 k/uL (1.3-7.7); Neutrophils % (A) 63 %; Platelet Count 380 k/uL (150-450); RBC 5.09 m/uL (4.30-5.90); RDW 12.5 % (11.5-15.5); WBC 8.6 k/uL (3.8-10.6)
--- NOTE | 2020-11-28 19:25 | US ---
EXAMINATION TYPE: US groin RT DATE OF EXAM: 11/28/2020 COMPARISON: NONE CLINICAL HISTORY: pain. intermittent right groin/testicle pain for 2 years lymph node right groin = 3.0 x 0.7 x 2.1cm. IMPRESSION: No evidence of a hernia. There is ordinary appearing right inguinal lymph node demons trated.
--- NOTE | 2020-11-28 19:26 | US ---
EXAMINATION TYPE: US scrotum with doppler. Grayscale and color Doppler Duplex imaging performed of serene roth scrotum. DATE OF EXAM: 11/28/2020 COMPARISON: NONE CLINICAL HISTORY: pain. intermittent right groin and testicle pain for 2 years EXAM MEASUREMENTS: TESTICLES: Right Testicle: 4.1 x 2.5 x 3.4 cm Left Testicle: 4.2 x 2.5 x 3.5 cm EPIDIDYMIS HEAD: Right Epididymis: 1.4 cm Left Epididymis: 1.1 cm Doppler performed to assess for testicular vascularity; good bilateral color flow and waveforms are s een. There is no evidence of testicular torsion. Presence of hydroceles: yes, fluid collection adjacent right testicle = 3.8cm Presence of varicoceles: no IMPRESSION: No testicular torsion or mass. There is a mild right-sided hydrocele.
[2020-11-28 19:32] LABS: ALT 75 U/L (4-49); AST 49 U/L (17-59); African American GFR (CKD) >90 (>60 ml/min/1.73 sqM); Albumin 4.4 g/dL (3.5-5.0); Alkaline Phosphatase 128 U/L (38-126); Anion Gap 6 mmol/L; Blood Urea Nitrogen 9 mg/dL (9-20); Calcium 9.6 mg/dL (8.4-10.2); Carbon Dioxide 29 mmol/L (22-30); Chloride 101 mmol/L (98-107); Glucose 102 mg/dL (74-99); Non-African American GFR(CKD) >90 (>60 ml/min/1.73 sqM); Potassium 4.1 mmol/L (3.5-5.1); Sodium 136 mmol/L (137-145); Total Bilirubin 0.6 mg/dL (0.2-1.3); Total Protein 7.6 g/dL (6.3-8.2)
[2020-11-28 19:39] LABS: Amorphous Sediment,Urine Moderate /hpf; Appearance,Urine Cloudy (Clear); Bacteria,Urine Occasional /hpf; Bilirubin,Urine Negative (Negative); Blood,Urine Negative (Negative); Color,Urine Light Yellow; Glucose,Urine (UA) Negative (Negative); Ketones,Urine Negative (Negative); Leukocyte Esterase,Urine Negative (Negative); Mucus,Urine Many /hpf; Nitrite,Urine Negative (Negative); PH, Urine 6.5 (5.0-8.0); Protein,Urine Trace (Negative); RBC,Urine <1 /hpf (0-5); Specific Gravity,Urine 1.007 (1.001-1.035); Squamous Epithelial Cell,Urine <1 /hpf (0-4); Urobilinogen,Urine <2.0 mg/dL (<2.0); WBC,Urine 3 /hpf (0-5)
[2020-11-28] MEDS ORDERED: MORPHINE SULFATE 2 MG/ML SYRINGE IVP ONE (20:19)
[2020-11-28 20:32] VITALS: BP 110/76; PULSE 89; TEMP 98.3
== END 2020-11-28 20:29 | disposition home or self-care (01) ==
LOC: EC 16:49
DX: N50.811 Right testicular pain (principal); F17.200 Nicotine dependence, unspecified, uncomplicated; F12.90 Cannabis use, unspecified, uncomplicated; Z90.49 Acquired absence of other specified parts of digestive tract; Z86.19 Personal history of other infectious and parasitic diseases
CPT/HCPCS: 99284; 96374; 96375; 96361; 36415; 80053; 85025; 81001; 93975; 76870; 76882; J2270; J1885

== ENCOUNTER 2021-09-06 23:26 | Emergency (ER) | payer OTHER ==
[2021-09-06 23:29] VITALS: RESP 18; TEMP 98.5
--- NOTE | 2021-09-07 00:36 | ED ---
Overdose HPI - General Chief Complaint: Overdose Stated Complaint: Overdose Time Seen by Provider: 09/06/21 23:28 Source: patient, EMS Mode of arrival: EMS Limitations: no limitations - History of Present Illness Initial Comments: 40-year-old male who presents to the emergency department after he overdosed on heroin. The patient reports that he was at a friend's house when he injected a small amount of heroin into his right forearm. He was with a friend who went unresponsive. Other friends called EMS. They found the patient to be somnolent however was able to be aroused. En route to the hospital the patient had a little bit of decrease in his saturations and therefore they gave him 2 g of IV narcan. He denies that he was trying to harm himself. States that he just wanted to get high. No CPR was performed. Patient complaining of any pain. 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 ROS Other: All systems not noted in ROS Statement are negative. Past Medical History Additional Past Medical History / Comment(s): HEP C. History of Any Multi-Drug Resistant Organisms: None Reported Past Surgical History: Appendectomy, Orthopedic Surgery Additional Past Surgical History / Comment(s): orthopedic surgery Past Psychological History: No Psychological Hx Reported Smoking Status: Current every day smoker Past Alcohol Use History: None Reported, Rare Past Drug Use History: Marijuana General Exam Limitations: no limitations General appearance: alert, in no apparent distress, anxious Head exam: Present: atraumatic, normocephalic, normal inspection Eye exam: Present: normal appearance, PERRL, EOMI. Absent: scleral icterus, conjunctival injection, periorbital swelling ENT exam: Present: normal exam, mucous membranes moist Neck exam: Present: normal inspection. Absent: tenderness, meningismus, lymphadenopathy Respiratory exam: Present: normal lung sounds bilaterally. Absent: respiratory distress, wheezes, rales, rhonchi, stridor Cardiovascular Exam: Present: normal rhythm, tachycardia, normal heart sounds. Absent: systolic murmur, diastolic murmur, rubs, gallop, clicks GI/Abdominal exam: Present: soft, normal bowel sounds. Absent: distended, tenderness, guarding, rebound, rigid Extremities exam: Present: normal inspection, full ROM, normal capillary refill. Absent: tenderness, pedal edema, joint swelling, calf tenderness Back exam: Present: normal inspection Neurological exam: Present: alert, oriented X3, CN II-XII intact Psychiatric exam: Present: normal affect, normal mood Skin exam: Present: warm, dry, intact, normal color. Absent: rash Course Vital Signs 09/06/21 09/07/21 23:27 00:54 Temperature 98.5 F Pulse Rate 112 H 88 Respiratory 18 18 Rate Blood Pressure 133/95 113/68 O2 Sat by Pulse 100 94 L Oximetry Medical Decision Making - Medical Decision Making Upon arrival patient was placed into room 2. Patient is awake and alert. He is monitored for an hour and a half without any sedation. Patient is comfortable for discharge home. Instructed not to use any drugs. Follow up with his doctor and return for any new or worsening symptoms. Patient was discharged home in stable condition Disposition Clinical Impression: Accidental drug overdose Disposition: HOME SELF-CARE Condition: Stable Instructions (If sedation given, give patient instructions): Adult Overdose (ED) Is patient prescribed a controlled substance at d/c from ED?: No Referrals: None,Stated [Primary Care Provider] - 1-2 days Time of Disposition: 00:36 Decision to Admit Reason: Admit from EC Decision Date: 09/07/21 Decision Time: 00:36
[2021-09-07 00:57] VITALS: BP 113/68; PULSE 88
== END 2021-09-07 00:56 | disposition home or self-care (01) ==
LOC: EC 23:26
DX: T40.1X1A Poisoning by heroin, accidental (unintentional), initial encounter (principal); F17.200 Nicotine dependence, unspecified, uncomplicated
CPT/HCPCS: 99283

== ENCOUNTER 2021-09-08 19:52 | Inpatient (IN) | payer MEDICAID, OTHER ==
--- NOTE | 2021-09-08 21:35 | ED ---
General Adult HPI - General Source: RN notes reviewed, old records reviewed <Chidi Simon - Last Filed: 09/09/21 01:03> - General Source: patient Mode of arrival: ambulatory Limitations: no limitations <Loco Tineo - Last Filed: 09/09/21 16:05> - General Chief complaint: Psychiatric Symptoms Stated complaint: Mental Health Time Seen by Provider: 09/08/21 20:53 - History of Present Illness Initial comments: Dictation was produced using [email or web address] dictation software. please excuse any grammatical, word or spelling errors. Chief Complaint: 40-year-old male presents emergency department for suicidal ideation History of Present Illness: 40-year-old male presents emergency department for suicidal ideation. Patient states that he's been feeling suicidal for long time. Does not have any specific plan. He was recently in the emergency department yesterday for similar issue. Patient denies any homicidal ideation. No visual auditory hallucinations. Patient denies any medical complaints. The ROS documented in this emergency department record has been reviewed and confirmed by me. Those systems with pertinent positive or negative responses have been documented in the HPI. All other systems are other negative and/or noncontributory. PHYSICAL EXAM: General Impression: Alert and oriented x3, not in acute distress HEENT: Normocephalic atraumatic, extra-ocular movements intact, pupils equal and reactive to light bilaterally, mucous membranes moist. Cardiovascular: Heart regular rate and rhythm Chest: Able to complete full sentences, no retractions, no tachypnea Abdomen: abdomen soft, non-tender, non-distended, no organomegaly Musculoskeletal: Pulses present and equal in all extremities, no peripheral edema Motor: no focal deficits noted Neurological: CN II-XII grossly intact, no focal motor or sensory deficits noted Skin: Intact with no visualized rashes Psych: Normal affect and mood ED course: 40-year-old male presents to the emergency department for suicidal ideation. Signs upon arrival are within acceptable limits. Physical examination is benign. Patient medically cleared for EPS. Patient evaluated by EPS and admitted to inpatient psychiatric unit. (Loco Tineo) - Related Data Home Medications Medication Instructions Recorded Confirmed No Known Home Medications 09/08/21 09/09/21 Allergies Allergy/AdvReac Type Severity Reaction Status Date / Time No Known Allergies Allergy Verified 09/09/21 01:38 Review of Systems ROS Other: All systems not noted in ROS Statement are negative. <Chidi Simon - Last Filed: 09/09/21 01:03> ROS Other: All systems not noted in ROS Statement are negative. <Loco Tineo - Last Filed: 09/09/21 16:05> ROS Statement: Those systems with pertinent positive or pertinent negative responses have been documented in the HPI. Past Medical History Additional Past Medical History / Comment(s): HEP C. History of Any Multi-Drug Resistant Organisms: None Reported Past Surgical History: Appendectomy, Orthopedic Surgery Additional Past Surgical History / Comment(s): orthopedic surgery, ankles, shoudler Past Psychological History: No Psychological Hx Reported Smoking Status: Current every day smoker Past Alcohol Use History: None Reported Past Drug Use History: Heroin, Marijuana, Methamphetamine <Loco Tineo - Last Filed: 09/09/21 16:05> General Exam General appearance: alert, in no apparent distress Head exam: Present: atraumatic, normocephalic, normal inspection Eye exam: Present: normal appearance, PERRL, EOMI. Absent: scleral icterus, conjunctival injection, periorbital swelling ENT exam: Present: normal exam, mucous membranes moist Neck exam: Present: normal inspection. Absent: tenderness, meningismus, lymphadenopathy Respiratory exam: Present: normal lung sounds bilaterally. Absent: respiratory distress, wheezes, rales, rhonchi, stridor Cardiovascular Exam: Present: regular rate, normal rhythm, normal heart sounds. Absent: systolic murmur, diastolic murmur, rubs, gallop, clicks GI/Abdominal exam: Present: soft, normal bowel sounds. Absent: distended, tenderness, guarding, rebound, rigid Extremities exam: Present: normal inspection, full ROM, normal capillary refill. Absent: tenderness, pedal edema, joint swelling, calf tenderness Back exam: Present: normal inspection Neurological exam: Present: alert, oriented X3, CN II-XII intact Psychiatric exam: Present: normal affect, normal mood Skin exam: Present: warm, dry, intact, normal color. Absent: rash <Chidi Simon - Last Filed: 09/09/21 01:03> Limitations: no limitations <Bayudan,Loco D - Last Filed: 09/09/21 16:05> Course <Chidi Simon - Last Filed: 09/09/21 01:03> Vital Signs 09/08/21 09/09/21 09/09/21 20:36 00:41 02:05 Temperature 97.7 F 97.6 F Pulse Rate 93 Pulse Rate [ 86 Left Sitting Pulse Oximetery ] Respiratory 16 18 Rate Blood Pressure 102/74 Blood Pressure 108/65 [Right Arm Sitting] O2 Sat by Pulse 100 100 97 Oximetry - Reevaluation(s) Reevaluation #1: 09/09/21 01:04 Medical records reviewed (Chidi Simon) Reevaluation #2: 09/09/21 01:04 medically clear for psychiatric evaluation (Chidi Simon) Medical Decision Making <Chidi Simon - Last Filed: 09/09/21 01:03> - Medical Decision Making 40 male seen and evaluated by psychiatry, patient will be admitted for psychiatric evaluation and treatment (Chidi Simon) - Lab Data Lab Results 09/09/21 09/09/21 09/09/21 Range/Units 00:25 00:25 00:27 Urine Color Yellow Urine Appearance Clear (Clear) Urine pH 6.5 (5.0-8.0) Ur Specific [place] 1.015 (1.001-1.035) Urine Protein Negative (Negative) Urine Glucose (UA) Negative (Negative) Urine Ketones Negative (Negative) Urine Blood Negative (Negative) Urine Nitrite Negative (Negative) Urine Bilirubin Negative (Negative) Urine Urobilinogen <2.0 (<2.0) mg/dL Ur Leukocyte Esterase Trace H (Negative) Urine RBC <1 (0-5) /hpf Urine WBC 2 (0-5) /hpf Urine Mucus Moderate H (None) /hpf Urine Opiates Screen Not Detected (NotDetected) Ur Oxycodone Screen Not Detected (NotDetected) Urine Methadone Screen Not Detected (NotDetected) Ur Propoxyphene Screen Not Detected (NotDetected) Ur Barbiturates Screen Not Detected (NotDetected) U Tricyclic Antidepress Not Detected (NotDetected) Ur Phencyclidine Scrn Not Detected (NotDetected) Ur Amphetamines Screen Detected H (NotDetected) U Methamphetamines Scrn Not Detected (NotDetected) U Benzodiazepines Scrn Not Detected (NotDetected) Urine Cocaine Screen Not Detected (NotDetected) U Marijuana (THC) Screen Detected H (NotDetected) Coronavirus (PCR) Not Detected (Not Detectd) Disposition Is patient prescribed a controlled substance at d/c from ED?: No <Chidi Simon B - Last Filed: 09/09/21 01:03> <Loco Tineo - Last Filed: 09/09/21 16:05> Clinical Impression: Acute anxiety, Depression, Suicidal ideation Disposition: TRANSFER TO PSYCH HOSP/UNIT Condition: Fair
[2021-09-09] MEDS ORDERED: ACETAMINOPHEN TAB 325 MG TAB PO STA (00:28)
[2021-09-09 00:54] LABS: Appearance,Urine Clear (Clear); Bilirubin,Urine Negative (Negative); Blood,Urine Negative (Negative); Color,Urine Yellow; Glucose,Urine (UA) Negative (Negative); Ketones,Urine Negative (Negative); Leukocyte Esterase,Urine Trace (Negative); Mucus,Urine Moderate /hpf; Nitrite,Urine Negative (Negative); PH, Urine 6.5 (5.0-8.0); Protein,Urine Negative (Negative); RBC,Urine <1 /hpf (0-5); Specific Gravity,Urine 1.015 (1.001-1.035); Urobilinogen,Urine <2.0 mg/dL (<2.0); WBC,Urine 2 /hpf (0-5)
[2021-09-09 01:07] LABS: Amphetamine Screen,Urine Detected (NotDetected); Barbiturate Screen,Urine Not Detected (NotDetected); Benzodiazepines Screen,Urine Not Detected (NotDetected); Cocaine Screen,Urine Not Detected (NotDetected); Methadone Screen, Urine Not Detected (NotDetected); Opiate Screen,Urine Not Detected (NotDetected); Oxycodone Screen, Urine Not Detected (NotDetected); Phencyclidine Screen,Urine Not Detected (NotDetected); Tricyclic Antidepressant,Urine Not Detected (NotDetected); Urn Cannabinoid Scrn Detected (NotDetected)
[2021-09-09] MEDS ORDERED: chlorproMAZINE 25 MG TAB PO PRN (03:13)
[2021-09-09] MEDS ORDERED: chlorproMAZINE 25 MG/ML 2 ML AMP IM PRN (03:13)
[2021-09-09] MEDS ORDERED: hydrOXYzine HCL 50 MG/ML 1 ML VIAL IM PRN (06:00)
[2021-09-09] MEDS ORDERED: MAG HYDROX/AL HYDROX/SIMETH 30 ML CUP PO PRN (08:00)
[2021-09-09] MEDS ORDERED: MAGNESIUM HYDROXIDE 2,400 MG/10 ML CUP PO PRN (09:00)
[2021-09-09] MEDS ORDERED: NICOTINE 14MG/24HR PATCH TRANSDERM SCH (09:00)
[2021-09-09] MEDS: SERTRALINE 50 MG TAB PO SCH (14:16)
[2021-09-09] MEDS: IBUPROFEN 600 MG TAB PO PRN ×2 (14:16→20:29)
--- NOTE | 2021-09-09 14:34 | P.HP ---
Psychiatric H&P - . H&P Date: 09/09/21 History & Physical: Allergies Allergy/AdvReac Type Severity Reaction Status Date / Time No Known Allergies Allergy Verified 09/09/21 01:38 Vital Signs Temp 97.6 F 09/09/21 02:05 Pulse 86 09/09/21 02:05 Resp 18 09/09/21 02:05 BP 108/65 09/09/21 02:05 Pulse Ox 97 09/09/21 02:05 FiO2 Intake & Output 09/08/21 09/09/21 09/09/21 18:59 06:59 18:59 Weight 64.9 kg Laboratory Last Values Urine Color Yellow 09/09/21 00:25 Urine Appearance Clear (Clear) 09/09/21 00:25 Urine pH 6.5 (5.0-8.0) 09/09/21 00:25 Ur Specific [place] 1.015 (1.001-1.035) 09/09/21 00:25 Urine Protein Negative (Negative) 09/09/21 00:25 Urine Glucose (UA) Negative (Negative) 09/09/21 00:25 Urine Ketones Negative (Negative) 09/09/21 00:25 Urine Blood Negative (Negative) 09/09/21 00:25 Urine Nitrite Negative (Negative) 09/09/21 00:25 Urine Bilirubin Negative (Negative) 09/09/21 00:25 Urine Urobilinogen <2.0 mg/dL (<2.0) 09/09/21 00:25 Ur Leukocyte Esterase Trace (Negative) H 09/09/21 00:25 Urine RBC <1 /hpf (0-5) 09/09/21 00:25 Urine WBC 2 /hpf (0-5) 09/09/21 00:25 Urine Mucus Moderate /hpf (None) H 09/09/21 00:25 Urine Opiates Screen Not Detected (NotDetected) 09/09/21 00:25 Ur Oxycodone Screen Not Detected (NotDetected) 09/09/21 00:25 Urine Methadone Screen Not Detected (NotDetected) 09/09/21 00:25 Ur Propoxyphene Screen Not Detected (NotDetected) 09/09/21 00:25 Ur Barbiturates Screen Not Detected (NotDetected) 09/09/21 00:25 U Tricyclic Antidepress Not Detected (NotDetected) 09/09/21 00:25 Ur Phencyclidine Scrn Not Detected (NotDetected) 09/09/21 00:25 Ur Amphetamines Screen Detected (NotDetected) H 09/09/21 00:25 U Methamphetamines Scrn Not Detected (NotDetected) 09/09/21 00:25 U Benzodiazepines Scrn Not Detected (NotDetected) 09/09/21 00:25 Urine Cocaine Screen Not Detected (NotDetected) 09/09/21 00:25 U Marijuana (THC) Screen Detected (NotDetected) H 09/09/21 00:25 Coronavirus (PCR) Not Detected (Not Detectd) 09/09/21 00:27 09/09/21 14:28 IDENTIFYING DATA: Patient is a 40-year-old male, currently homeless is and has one son. Currently unemployed. HPI: Patient presented to the hospital with depression and suicidal ideations. Patient was seen one day prior in the ER for a opioid overdose and came back to the ER the next day. Patient was admitted voluntarily to mental health unit. Patient was seen today laying in the bed and [facility] street director. Patient has multiple tattoos, appeared to be disheveled in appearance and was fairly cooperative during the interview. He stated that he "is tired of losing everything" and spoke about going through a divorce and also financial difficulties. He stated that he is also having legal and custody issues were paying child support to his ex-. He states that he was extradited to [place] and has not been doing well here since. He states that he feels he cannot find a job and does not have a phone. He claims that he does have anhedonia and hopelessness. He is stating that he has anxiety as well. Decreased sleep. fair Appetite. Patient denies any current suicidal or homicidal ideations intent or plan. At this time patient denies any auditory or visual hallucinations. Patient denies any flight of ideas racing thoughts and increased in goal directed behavior. Patient admits to using recreational drugs including methamphetamine occasionally, cigarettes daily, heroin occasionally. PAST PSYCHIATRIC HISTORY: Patient states that he has a history of polysubstance abuse and depression/anxiety. Patient denies being on any psychiatric medications. He claims that he was last psychiatrically hospitalized in 2014 to the mental health unit. Patient denies any psychiatric outpatient follow-up. He claims that he cut his wrist several times in the past. PMH: Hepatitis C ALLERGIES: as per EMR CHEMICAL DEPENDENCY HISTORY: as per HPI FAMILY PSYCHIATRIC/SUBSTANCE USE HISTORY: denies SOCIAL HISTORY: Patient was born and raised in [facility]. He states that he dropped out of school in the seventh grade however returned back to get his GED. 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 He claims that he did go [facility] in the past due to child support nonpayment. He claims that he is homeless. He is . He has one son. MENTAL STATUS EXAM: General Appearance: Patient appears to be thin, disheveled, multiple tattoos, stated age is alert, directable, and attempts to cooperate. Patient appears to have poor hygiene and grooming. Behavior: Patient is seated without any agitated behavior. Poor eye contact. Speech: Patient's speech is fluent and nonpressured. Soft tone. Mood/Affect: Patient reports their mood is depressed and anxious, affect is congruent and constricted. Suicidality/Homicidality: Patient denies having any homicidal ideation intent or plan. Denies any suicidal ideations intent or plan Perceptions: Patient denies any visual hallucinations and denies any auditory hallucinations Though content/process: There is no evidence of any delusional thought content and thought process is linear and goal-directed. [place] Memory and concentration: AOX3, grossly intact for the purposes of this session. Can spell "WORLD" backwards Judgment and insight: poor STRENGTHS/WEAKNESSES: strength is that patient is resilient. Weakness is that patient has poor judgment and is impulsive INTELLECT: average IMPRESSIONS: Major depressive disorder, without psychotic features Methamphetamine use disorder Opioid use disorder Nicotine dependence PLAN: -Patient is admitted under voluntary status to MHU for stabilization of psychiatric symptoms and safety. Patient has signed adult voluntary form and medication consent and is placed in patient's chart. -Medications : Will start patient on Zoloft 50 mg daily for mood/anxiety, trazodone 50 mg daily at bedtime for mood/insomnia. -Haldol and Vistaril PRN for agitation/aggression -Patient was counselled on substance abuse and desired to cut back on use -Patient was informed of the risks, benefits and side effects of the medication and patient verbally consented to taking the medications. Patient signed med consent form and was placed in chart. -Internal Medicine consult to perform medical evaluation and physical. -NRT - nicotine patch -SW on board for discharge planning. Encourage patient to participate in groups to work on coping skills. We'll speak with patient about possibly going to rehab versus assisted.
[2021-09-09] MEDS: ACETAMINOPHEN TAB 325 MG TAB PO PRN (17:24)
[2021-09-09] MEDS ORDERED: traZODone HCL 50 MG TAB PO SCH (21:00)
--- NOTE | 2021-09-10 03:08 | P.CONS ---
History of Present Illness - Reason for Consult Consult date: 09/10/21 - History of Present Illness The patient is a 40-year-old male with a PMH of polysubstance abuse presented to the emergency room with complaints of depression and suicidal ideation. He was admitted to the mental health unit where he was seen and evaluated. The patient reports that he has been struggling with the relationship with his child's mother and having to make child support payments. Reports using multiple sub stances regularly including heroin. Reports occasional use of tobacco and alcohol. Denies any physical complaints. Denied experiencing fever, chills, cough, chest pain, shortness of breath, nausea, vomiting, abdominal pain, diarrhea. Review of systems: Pertinent positives and negatives as discussed in HPI, a complete review of systems was performed and all other systems are negative. Physical examination: General: non toxic, no distress, appears at stated age, normal weight Derm: no unusual rashes/lesions no unusual ecchymoses, warm, dry Head: atraumatic, normocephalic, symmetric Eyes: EOMI, no lid lag, anicteric sclera, pupils equal round reactive to light ENT: Nose and ears atraumatic, no thrush, no pharyngeal erythema Neck: No thyromegaly, no cervical lymphadenopathy, trachea midline, supple Mouth: no lip lesion, mucus membranes moist Cardiovascular: S1S2 reg, no murmur, positive posterior tibial pulse bilateral, no edema, capillary refill less than 2 seconds Lungs: CTA bilateral, no rhonchi, no rales , no accessory muscle use Abdominal: soft, nontender to palpation, no guarding, no appreciable organomegaly, normal bowel sounds Ext: no gross muscle atrophy, muscle strength 5 out of 5 in all 4 extremities grossly, no contractures, Neuro: CN II-XI grossly intact, light touch intact all 4 extremities, finger to nose within normal limits, Psych: Alert, oriented, appropriate affect Assessment/plan Polysubstance abuse -Advised on importance of cessation Depression and suicidal ideation -As per psychiatry Thank you for allowing us to participate in the care of this patient. We will follow peripherally. Do not hesitate to contact us with questions. Someone can be reached from the [facility] hospitalist group at all hours of the day at [phone]. Past Medical History Additional Past Medical History / Comment(s): HEP C. History of Any Multi-Drug Resistant Organisms: None Reported Past Surgical History: Appendectomy, Orthopedic Surgery Additional Past Surgical History / Comment(s): orthopedic surgery, ankles, shoudler Past Psychological History: No Psychological Hx Reported Smoking Status: Current every day smoker Past Alcohol Use History: None Reported Past Drug Use History: Heroin, Marijuana, Methamphetamine - Past Family History Mother Family Medical History: Cancer Medications and Allergies Home Medications Medication Instructions Recorded Confirmed Type No Known Home Medications 09/08/21 09/09/21 History Allergies Allergy/AdvReac Type Severity Reaction Status Date / Time No Known Allergies Allergy Verified 09/09/21 01:38
[2021-09-10] MEDS: SERTRALINE 50 MG TAB PO SCH (08:21)
[2021-09-10] MEDS: IBUPROFEN 600 MG TAB PO PRN ×2 (08:22→20:14)
[2021-09-10] MEDS ORDERED: diphenhydrAMINE 25 MG CAP PO PRN (10:53)
--- NOTE | 2021-09-10 11:00 | P.PN ---
Progress Note - Text Progress Note Date: 09/10/21 Interval History: Patient was seen wandering the hallways and was directable and agreeable to susan cruz with typewriter repairer in the office. Patient appears to have mildly improving hygiene today. He states that he is feeling very anxious today and claimed that he just got off the phone with his brother. He states that they argued a bit over the phone about what's causing his problems. He states that his brother believes that it is mostly drug related. He claims that he does have depression and try to kill himself. He states that his mood is mildly better however still has severe anxiety at this time. He claims that he has gone to some groups. States that his appetite is fair. He claims that he did not sleep well last night due to several interruptions. At this time patient denies any suicidal or homical ideations, intent or plan. Patient denies any auditory, visual hallucinations and denies any paranoia or delusions. Patient denies any side effects from the medications and has been compliant with meds. Mental Status Exam: General Appearance: Patient appears to be thin, disheveled, multiple tattoos, stated age is alert, directable, and attempts to cooperate. Patient appears to have mildly improving hygiene and grooming. Behavior: Patient is seated without any agitated behavior. improving eye contact. Speech: Patient's speech is fluent and nonpressured. Mood/Affect: Patient reports their mood is depressed and anxious, affect is congruent and constricted. Suicidality/Homicidality: Patient denies having any homicidal ideation intent or plan. Denies any suicidal ideations intent or plan Perceptions: Patient denies any visual hallucinations and denies any auditory hallucinations Though content/process: There is no evidence of any delusional thought content and thought process is linear and goal-directed. Memory and concentration: AOX3, grossly intact for the purposes of this session Judgment and insight: poor, improving mildly IMPRESSIONS: Major depressive disorder, without psychotic features Methamphetamine use disorder Opioid use disorder Nicotine dependence Plan: -Patient continues to meet criteria for inpatient psychiatric admission for symptom stabilization and safety. Patient has signed adult voluntary form and medication consent and was placed in patient's chart. -Medications: increase Zoloft 100 mg daily for mood/anxiety, increase trazodone 100 mg daily at bedtime for mood/insomnia. added benadryl 25 mg qhs prn for insomnia -When necessary Ativan and Haldol for agitation/aggression. -NRT - nicotine patch -SW on board for discharge planning. Encouraged the patient to participate in milieu.
[2021-09-10] MEDS: ACETAMINOPHEN TAB 325 MG TAB PO PRN ×2 (11:10→17:44)
[2021-09-10] MEDS: hydrOXYzine pamoate 25 MG CAP PO PRN ×2 (11:10→17:46)
[2021-09-10 11:19] LABS: Basophils # (A) 0.1 k/uL (0-0.2); Basophils % (A) 1 %; Eosinophils # (A) 0.1 k/uL (0-0.7); Eosinophils % (A) 2 %; HCT 46.9 % (39.0-53.0); HGB 15.7 gm/dL (13.0-17.5); Lymphocytes # (A) 1.3 k/uL (1.0-4.8); Lymphocytes % (A) 23 %; MCH 30.5 pg (25.0-35.0); MCHC 33.5 g/dL (31.0-37.0); MCV 91.1 fL (80.0-100.0); Mean Platelet Volume 7.4; Monocytes # (A) 0.3 k/uL (0-1.0); Monocytes % (A) 5 %; Neutrophils # (A) 3.7 k/uL (1.3-7.7); Neutrophils % (A) 67 %; Platelet Count 327 k/uL (150-450); RBC 5.15 m/uL (4.30-5.90); RDW 13.1 % (11.5-15.5); WBC 5.4 k/uL (3.8-10.6)
[2021-09-10 11:56] LABS: ALT 54 U/L (4-49); AST 36 U/L (17-59); African American GFR (CKD) >90 (>60 ml/min/1.73 sqM); Albumin 4.3 g/dL (3.5-5.0); Alkaline Phosphatase 78 U/L (38-126); Anion Gap 7 mmol/L; Blood Urea Nitrogen 18 mg/dL (9-20); Carbon Dioxide 30 mmol/L (22-30); Chloride 103 mmol/L (98-107); Glucose 91 mg/dL (74-99); Non-African American GFR(CKD) >90 (>60 ml/min/1.73 sqM); Sodium 140 mmol/L (137-145); Total Bilirubin 1.2 mg/dL (0.2-1.3); Total Protein 7.4 g/dL (6.3-8.2)
[2021-09-10 11:58] LABS: Calcium 9.6 mg/dL (8.4-10.2)
[2021-09-10 18:04] LABS: Chol/HDL Ratio 4.79 Ratio; LDL Cholesterol,Calculated 141.3 mg/dL (0.0-131.0)
[2021-09-10] MEDS: traZODone HCL 100 MG TAB PO SCH (20:13)
[2021-09-11] MEDS: IBUPROFEN 600 MG TAB PO PRN ×2 (08:21→20:37)
[2021-09-11] MEDS: hydrOXYzine pamoate 25 MG CAP PO PRN ×3 (08:22→20:36)
[2021-09-11] MEDS: SERTRALINE 100 MG TAB PO SCH (08:22)
--- NOTE | 2021-09-11 10:54 | P.PN ---
Subjective Progress Note Date: 09/11/21 Principal diagnosis: IMPRESSIONS: Major depressive disorder, without psychotic features Methamphetamine use disorder Opioid use disorder Nicotine dependence Subjective data: Patient was seen while he was laying in bed and agreeable to speak with video game script writer in the office. He claims that he does have depression and try to kill himself. He states that he tried to overdose on heroine He states that his mood is mildly better however still has severe anxiety at this time. He claims that he has gone to some groups. He claims that he did not sleep well and that since in the hospital he is not been sleeping too well . At this time patient denies any suicidal or homical ideations, intent or plan. Patient denies any auditory, visual hallucinations and denies any paranoia or delusions. Patient denies any side effects from the medications and has been compliant with meds. However he admits that he feels helpless and hopeless and that he has been homeless Mental Status Exam: General Appearance: Patient appears to be thin, disheveled, multiple tattoos, stated age is alert, and attempts to cooperate. Behavior: Patient is laying down without any agitated behavior. improving eye contact. Speech: Patient's speech is fluent and nonpressured. Mood/Affect: Patient reports their mood is depressed and anxious, affect is congruent and constricted. Suicidality/Homicidality: Patient denies having any homicidal ideation intent or plan. Denies any suicidal ideations intent or plan Perceptions: Patient denies any visual hallucinations and denies any auditory hallucinations Though content/process: There is no evidence of any delusional thought content and thought process is linear and goal-directed. Memory and concentration: AOX3, grossly intact for the purposes of this session Judgment and insight: poor, improving mildly IMPRESSIONS: Major depressive disorder, without psychotic features Methamphetamine use disorder Opioid use disorder Nicotine dependence Plan: -Patient continues to meet criteria for inpatient psychiatric admission for symptom stabilization and safety. Patient has signed adult voluntary form and medication consent and was placed in patient's chart. -Medications: increase Zoloft 100 mg daily for mood/anxiety, increase trazodone 100 mg daily at bedtime for mood/insomnia. added benadryl 25 mg qhs prn for insomnia -When necessary Ativan and Haldol for agitation/aggression. -NRT - nicotine patch -SW on board for discharge planning. Encouraged the patient to participate in milieu. Jerrod New M.D. 09/11/2021 Objective - Vital Signs Vital signs: Vital Signs Temp 97.6 F 09/09/21 02:05 Pulse 86 09/09/21 02:05 Resp 18 09/09/21 02:05 BP 108/65 09/09/21 02:05 Pulse Ox 97 09/09/21 02:05 FiO2 - Labs CBC & Chem 7: 09/10/21 10:31 09/10/21 10:31 Labs: Abnormal Lab Results - Last 24 Hours (Table) 09/10/21 Range/Units 10:31 ALT 54 H (4-49) U/L Cholesterol 212.00 H (0.00-200.00) mg/dL LDL Cholesterol, Calc 141.3 H (0.0-131.0) mg/dL TSH 0.131 L (0.465-4.680) mIU/L
[2021-09-11] MEDS: ACETAMINOPHEN TAB 325 MG TAB PO PRN (14:56)
[2021-09-11] MEDS: traZODone HCL 100 MG TAB PO SCH (20:36)
[2021-09-12] MEDS: SERTRALINE 100 MG TAB PO SCH (08:21)
[2021-09-12] MEDS: IBUPROFEN 600 MG TAB PO PRN ×2 (08:21→20:46)
[2021-09-12] MEDS: hydrOXYzine pamoate 25 MG CAP PO PRN ×3 (08:21→20:46)
[2021-09-12] MEDS: ACETAMINOPHEN TAB 325 MG TAB PO PRN ×2 (10:34→17:16)
--- NOTE | 2021-09-12 12:11 | P.PN ---
Subjective Progress Note Date: 09/12/21 Principal diagnosis: IMPRESSIONS: Major depressive disorder, without psychotic features Methamphetamine use disorder Opioid use disorder Nicotine dependence Subjective data: Patient was seen while walking in the hallway and agreeable to speak with junior copywriter in the office. He claims that he does have depression and that things can go anyway depending on his future He states that he finds the day-to-day client somewhat routine and purposeless and sometimes wonders why he needs all this or even bother . He states that he tried to overdose on heroine and feels that the drugs may be a way to kill his boredom . At this time patient denies any suicidal or homical ideations, intent or plan. Patient denies any auditory, visual hallucinations and denies any paranoia or delusions. Patient denies any side effects from the medications and has been compliant with meds. However he admits that he feels helpless and hopeless and that he has been homeless Mental Status Exam: General Appearance: Patient appears to be thin, disheveled, multiple tattoos, stated age is alert, and attempts to cooperate. Behavior: Patient is laying down without any agitated behavior. improving eye contact. Speech: Patient's speech is fluent and nonpressured. Mood/Affect: Patient reports their mood is depressed and anxious, affect is congruent and full range Suicidality/Homicidality: Patient denies having any homicidal ideation intent or plan. Denies any suicidal ideations intent or plan Perceptions: Patient denies any visual hallucinations and denies any auditory hallucinations Though content/process: There is no evidence of any delusional thought content and thought process is linear and goal-directed. Memory and concentration: AOX3, grossly intact for the purposes of this session Judgment and insight: poor, improving mildly IMPRESSIONS: Major depressive disorder, without psychotic features Methamphetamine use disorder Opioid use disorder Nicotine dependence Plan: -Patient continues to meet criteria for inpatient psychiatric admission for symptom stabilization and safety. Patient has signed adult voluntary form and medication consent and was placed in patient's chart. -Medications: increase Zoloft 100 mg daily for mood/anxiety, increase trazodone 100 mg daily at bedtime for mood/insomnia. added benadryl 25 mg qhs prn for insomnia -When necessary Ativan and Haldol for agitation/aggression. -NRT - nicotine patch -SW on board for discharge planning. Encouraged the patient to participate in milieu. Jerrod Virgen M.D. 09/12/2021 Objective - Vital Signs Vital signs: Vital Signs Temp 98.1 F 09/12/21 06:47 Pulse 71 09/12/21 06:47 Resp 16 09/12/21 06:47 BP 104/62 09/12/21 06:47 Pulse Ox 99 09/12/21 06:47 FiO2 Intake & Output 09/11/21 09/12/21 09/12/21 18:59 06:59 18:59 Weight 66.7 kg - Labs CBC & Chem 7: 09/10/21 10:31 09/10/21 10:31
[2021-09-12] MEDS: traZODone HCL 100 MG TAB PO SCH (20:46)
[2021-09-13] MEDS: SERTRALINE 100 MG TAB PO SCH (09:24)
[2021-09-13] MEDS: IBUPROFEN 600 MG TAB PO PRN (09:24)
[2021-09-13] MEDS: hydrOXYzine pamoate 25 MG CAP PO PRN (09:25)
[2021-09-13] MEDS: ACETAMINOPHEN TAB 325 MG TAB PO PRN (14:37)
[2021-09-13] MEDS: OLANZapine 5 MG TAB PO SCH ×2 (15:59→21:05)
--- NOTE | 2021-09-13 18:55 | PN ---
PROGRESS NOTE DATE OF SERVICE: 09/13/2021 CHIEF COMPLAINT: The patient was admitted for depression with suicidal thinking. He had done on opioid overdose just prior to this admission. INTERVAL HISTORY: The patient had a quiet day yesterday. He comes out on the unit. He attends groups and seems to do well in the group process. He engages with others. He socializes well with staff and peers. He has been cooperative with all aspects of care. He continues with complaints of anxiety. It was documented that he slept 6 hours last night up until 0500 hours. Today he has been up and overall doing about the same. He continues to go to groups. He socializes. He does acknowledge quite a bit of anxiety. It is noteworthy that the patient is interested in going to [facility] upon discharge here. He talked at length about the critical issue of getting off all abusive substances. He has a significant history of use of alcohol, marijuana, methamphetamine and heroin, pretty much all of which he is withdrawing from at present. It is noteworthy that the patient attained a GED. 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 He tolerates his psychotropic medications. MENTAL STATUS: Patient sat with some restlessness. He had good eye contact. He answered questions appropriately. His thoughts were clear, coherent and goal-directed. He was spontaneous and interactive. His affect was anxious, his mood dysphoric. He was moderately distressed. There was no indication of thought disorder. He denied thoughts of harm. He was oriented and alert. ASSESSMENT: I will continue the current diagnosis and general treatment plan. I discussed with the patient that the most immediate issue impacting him is substance withdrawal issues. We discussed that while he is on an antidepressant, it is likely that he will gain little benefit from that at least over the next 4 to 6 weeks until the more immediate effects of withdrawal have dissipated. I will start the patient on Zyprexa 5 mg 3 times a day. The aim of Zyprexa is to help reduce physiologic stress response relating to acute substance withdrawal. I discussed the indication of Zyprexa. We reviewed potential side effects as well as concerns relating to metabolics and movement disorder issues. I encouraged the patient to work to pursue the option of admission to [facility], which would be a good first step towards recovery. Noteworthy is that the patient has some positive outlets in his life that he would choose to work towards, which would also help him to get into a positive program of recovery. We will focus on stabilization and discharge planning. SILVIA / RENÉE: [id number] /
[2021-09-13] MEDS: traZODone HCL 100 MG TAB PO SCH (21:05)
[2021-09-14 06:44] VITALS: RESP 16
[2021-09-14] MEDS: SERTRALINE 100 MG TAB PO SCH (08:17)
[2021-09-14] MEDS: OLANZapine 5 MG TAB PO SCH (08:17)
--- NOTE | 2021-09-14 10:07 | P.PN ---
Progress Note - Text Progress Note Date: 09/14/21 Interval History: Patient was seen laying in his bed this morning and was directable and agreeable to speak with data analyst report writer in the office. Patient claims that yesterday he was started on Zyprexa to help his anxiety and states that he was feeling tired after taking it. He claims that he slept fairly throughout the night last night. He states that his mood and anxiety been gradually improving. He continues to have worries about relapsing on drugs and going to rehab. He claims he called [facility] and is waiting for an intake date. He states that he is worried about relapsing. He claims that he has been going to some groups. fair Appetite. At this time patient denies any suicidal or homical ideations, intent or plan. Patient denies any auditory, visual hallucinations and denies any paranoia or delusions. Patient denies any side effects from the medications and has been compliant with meds. Mental Status Exam: General Appearance: Patient appears to be thin, disheveled, multiple tattoos, stated age is alert, directable, and attempts to cooperate. Patient appears to have mildly improving hygiene and grooming. Behavior: Patient is seated without any agitated behavior. improving eye contact. Speech: Patient's speech is fluent and nonpressured. Mood/Affect: Patient reports their mood is improving mildly, affect is congruent and constricted. Suicidality/Homicidality: Patient denies having any homicidal ideation intent or plan. Denies any suicidal ideations intent or plan Perceptions: Patient denies any visual hallucinations and denies any auditory hallucinations Though content/process: There is no evidence of any delusional thought content and thought process is linear and goal-directed. Memory and concentration: AOX3, grossly intact for the purposes of this session Judgment and insight: poor, improving mildly IMPRESSIONS: Major depressive disorder, without psychotic features Methamphetamine use disorder Opioid use disorder Nicotine dependence Plan: -Patient continues to meet criteria for inpatient psychiatric admission for symptom stabilization and safety. Patient has signed adult voluntary form and medication consent and was placed in patient's chart. -Medications: increase Zoloft 150 mg daily for mood/anxiety, increase trazodone 150 mg daily at bedtime for mood/insomnia. benadryl 25 mg qhs prn for insomnia. Discontinued olanzapine due to oversedation. Start BuSpar 10 mg 3 times a day when necessary for anxiety. -When necessary Thorazine and Vistaril for agitation/aggression. -NRT - nicotine patch -SW on board for discharge planning. Encouraged the patient to participate in milieu. patient will be discharged to rehab once we have an intake date.
[2021-09-14] MEDS: busPIRone HCl 10 MG TAB PO PRN ×2 (15:11→22:17)
[2021-09-14] MEDS: IBUPROFEN 600 MG TAB PO PRN (15:58)
[2021-09-14] MEDS ORDERED: traZODone HCL 50 MG TAB PO SCH (21:00)
[2021-09-14] MEDS: ACETAMINOPHEN TAB 325 MG TAB PO PRN (21:18)
[2021-09-15] MEDS: SERTRALINE 100 MG TAB PO SCH (09:15)
[2021-09-15] MEDS: IBUPROFEN 600 MG TAB PO PRN ×2 (11:11→19:58)
[2021-09-15] MEDS: busPIRone HCl 10 MG TAB PO PRN ×2 (11:11→19:58)
--- NOTE | 2021-09-15 11:38 | P.PN ---
Progress Note - Text Progress Note Date: 09/15/21 Interval History: Patient was seen wandering the hallways this morning and was directable and ag reeable to speak with hand sign writer in the office. Patient claims that he is still feeling anxious at times on the unit but states that he is trying to cope and is mainly related to discharge planning. He states that he is still motivated to go to rehab and states that he has an intake date set for tomorrow. He claims that he is worried about possible relapse if he gets discharged from the hospital too early and not directly to rehab. He claims that his mood and anxiety have been gradually improving. He states that he was able to sleep throughout the night. Admits to a fair appetite. At this time patient denies any suicidal or homical ideations, intent or plan. Patient denies any auditory, visual hallucinations and denies any paranoia or delusions. Patient denies any side effects from the m edications and has been compliant with meds. Mental Status Exam: General Appearance: Patient appears to be thin, disheveled, multiple tattoos, stated age is alert, directable, and attempts to cooperate. Patient appears to have mildly improving hygiene and grooming. Behavior: Patient is seated without any agitated behavior. Improving eye contact. Speech: Patient's speech is fluent and nonpressured. Mood/Affect: Patient reports their mood is improving mildly, affect is congruent and constricted. Suicidality/Homicidality: Patient denies having any homicidal ideation intent or plan. Denies any suicidal ideations intent or plan Perceptions: Patient denies any visual hallucinations and denies any auditory hallucinations Though content/process: There is no evidence of any delusional thought content and thought process is linear and goal-directed. Memory and concentration: AOX3, grossly intact for the purposes of this session Judgment and insight: poor, improving mildly IMPRESSIONS: Major depressive disorder, without psychotic features Methamphetamine use disorder Opioid use disorder Nicotine dependence Plan: -Patient continues to meet criteria for inpatient psychiatric admission for symptom stabilization and safety. Patient has signed adult voluntary form and medication consent and was placed in patient's chart. -Medications: Zoloft 150 mg daily for mood/anxiety, increase trazodone 200 mg daily at bedtime for mood/insomnia. Benadryl 25 mg qhs prn for insomnia. increase BuSpar 20 mg 3 times a day when necessary for anxiety. -When necessary Thorazine and Vistaril for agitation/aggression. -NRT - nicotine patch -SW on board for discharge planning. Encouraged the patient to participate in milieu. patient will be discharged to rehab tomorrow for intake in the morning.
[2021-09-15] MEDS: hydrOXYzine pamoate 25 MG CAP PO PRN (14:28)
[2021-09-15] MEDS: ACETAMINOPHEN TAB 325 MG TAB PO PRN (16:16)
[2021-09-15] MEDS ORDERED: traZODone HCL 100 MG TAB PO SCH (21:00)
[2021-09-16] MEDS: ACETAMINOPHEN TAB 325 MG TAB PO PRN (00:35)
[2021-09-16 06:28] VITALS: BP 111/79; PULSE 71; TEMP 97.7
[2021-09-16] MEDS: SERTRALINE 100 MG TAB PO SCH (08:33)
[2021-09-16] MEDS: IBUPROFEN 600 MG TAB PO PRN (08:33)
[2021-09-16] MEDS: busPIRone HCl 10 MG TAB PO PRN (08:36)
[2021-09-16] MEDS: hydrOXYzine pamoate 25 MG CAP PO PRN (09:44)
--- NOTE | 2021-09-16 09:54 | P.DS ---
Providers Date of admission: 09/09/21 01:26 Expected date of discharge: 09/16/21 Attending physician: Michele Gonzalez MD Consults: 09/09/21 01:36 Consult Physician Routine Consulting Provider: Carrie Emanuel Consult Reason/Comments: For H & P for Medical follows up Do you want consulting provider notified?: Yes Primary care physician: Stated None - Discharge Diagnosis(es) (1) Major depressive disorder without psychotic features Current Visit: Yes Status: Acute Priority: High (2) Methamphetamine use disorder, moderate Current Visit: Yes Status: Acute Priority: High (3) Opioid use disorder, moderate, dependence Current Visit: Yes Status: Acute Priority: High (4) Nicotine dependence Current Visit: Yes Status: Acute Priority: Low Hospital Course: Admission HPI: Admission note was completed by policy writer sales "Patient is a 40-year-old male, currently homeless is and has one son. Currently unemployed. Patient presented to the hospital with depression and suicidal ideations. Patient was seen one day prior in the ER for a opioid overdose and came back to the ER the next day. Patient was admitted voluntarily to mental health unit. Patient was seen today laying in the bed and agreeable street director. Patient has multiple tattoos, appeared to be disheveled in appearance and was fairly cooperative during the interview. He stated that he "is tired of losing everything" and spoke about going through a divorce and also financial difficulties. He stated that he is also having legal and custody issues were paying child support to his ex-. He states that he was extradited to [place] and has not been doing well here since. He states that he feels he cannot find a job and does not have a phone. He claims that he does have anhedonia and hopelessness. He is stating that he has anxiety as well. Decreased sleep. fair Appetite. Patient denies any current suicidal or homicidal ideations intent or plan. At this time patient denies any auditory or visual hallucinations. Patient denies any flight of ideas racing thoughts and increased in goal directed behavior. Patient admits to using recreational drugs including methamphetamine occasionally, cigarettes daily, heroin occasionally." Hospital course: Upon admission to the unit patient was directable and agreeable to commence treatment and signed adult voluntary form . Patient got along well with other patients on the unit and followed unit protocol. Patient was compliant with the medications and denied any side effects throughout hospital course. Patient was started on Zoloft 150 mg daily for mood/anxiety, trazodone increased to dose of 200 mg daily at bedtime for mood/insomnia, Benadryl 25 mg daily at bedtime when necessary for insomnia, BuSpar 30 mg twice a day when necessary for anxiety.. Patient spoke of his stressors and engaged in therapy both group and individual. Patient was also seen by medical team for history and physical exam. Throughout the course of the hospitalization patient gradually improved with regards to mood, anxiety, sleep and became more future oriented with improved insight and judgment. On the day of discharge patient denied any suicidal or homicidal ideations intent or plan denied any auditory or visual hallucinations. Patient endorsed wanting to live for his sobriety and his family. The patient denied any access to guns or weapons. Patient denied any paranoia and did not endorse any delusions. Patient does have a significant history of substance abuse and was counseled on abstaining from all substances including alcohol and marijuana. Patient called access line and got an intake date set for day of discharge and will be discharged directly to [facility]. Patient was also counseled on the medications and need for regular compliance and was encouraged to follow-up with their outpatient appointment for mental health and also for primary care. Mental status exam: General Appearance: Patient appears to be short in stature, multiple tattoos, stated age is alert, pleasant, and cooperative. Patient is in no acute distress and has improved hygiene and grooming Behavior: Patient is calmly seated without any agitated behavior. Speech: Patient's speech is fluent and nonpressured. Mood/Affect: Patient reports their mood is "good", affect is congruent and euthymic. Suicidality/Homicidality: Patient denies having any suicidal or homicidal ideation intent or plan. Perceptions: Patient denies any auditory or visual hallucinations. Though content/process: There is no evidence of any delusional thought content and thought process is linear and goal-directed. more future oriented Memory and concentration: AOX3, grossly intact for the purposes of this session. Can spell "WORLD" backwards correctly. Judgment and insight: improved with guarded prognosis Impression: Major depressive disorder, without psychotic features Methamphetamine use disorder moderate Opioid use disorder moderate Nicotine dependence Plan: -Continue with discharge today as patient has improved and stabilized psychiatrically and is not currently an imminent threat to himself and/or others. Patient will remain at chronically elevated risk for harm to self and/or others due to his polysubstance abuse. -Continue medications: Zoloft 150 mg daily for mood/physiatry, trazodone 200 mg daily at bedtime for mood/insomnia, Benadryl 25 mg daily at bedtime when necessary for insomnia, BuSpar 30 mg twice a day when necessary for anxiety. -Patient was counseled on the need for medication compliance and appropriate follow-up at mental health and also primary care for medical issues. Patient verbalized understanding and agreed. -Social work to help arrange patient's discharge today to [facility] rehab. Social work also to arrange for patients follow up appointments with [facility] for psychiatric care along with follow up with primary care provider. -Patient counseled on abstaining from recreational drugs and marijuana and alcohol. Was informed/educated on the adverse effects on their physical and mental health. Patient verbally agreed and understood. -Patient was instructed to return to the hospital or seek immediate medical care if their psychiatric or medical symptoms do worsen or reoccur. Allergies Allergy/AdvReac Type Severity Reaction Status Date / Time No Known Allergies Allergy Verified 09/09/21 01:38 Laboratory Results WBC 5.4 k/uL (3.8-10.6) 09/10/21 10:31 RBC 5.15 m/uL (4.30-5.90) 09/10/21 10:31 Hgb 15.7 gm/dL (13.0-17.5) 09/10/21 10:31 Hct 46.9 % (39.0-53.0) 09/10/21 10:31 MCV 91.1 fL (80.0-100.0) 09/10/21 10:31 MCH 30.5 pg (25.0-35.0) 09/10/21 10:31 MCHC 33.5 g/dL (31.0-37.0) 09/10/21 10:31 RDW 13.1 % (11.5-15.5) 09/10/21 10:31 Plt Count 327 k/uL (150-450) 09/10/21 10:31 MPV 7.4 09/10/21 10:31 Neutrophils % 67 % 09/10/21 10:31 Lymphocytes % 23 % 09/10/21 10:31 Monocytes % 5 % 09/10/21 10:31 Eosinophils % 2 % 09/10/21 10:31 Basophils % 1 % 09/10/21 10:31 Neutrophils # 3.7 k/uL (1.3-7.7) 09/10/21 10:31 Lymphocytes # 1.3 k/uL (1.0-4.8) 09/10/21 10:31 Monocytes # 0.3 k/uL (0-1.0) 09/10/21 10:31 Eosinophils # 0.1 k/uL (0-0.7) 09/10/21 10:31 Basophils # 0.1 k/uL (0-0.2) 09/10/21 10:31 Sodium 140 mmol/L (137-145) 09/10/21 10:31 Potassium 5.0 mmol/L (3.5-5.1) 09/10/21 10:31 Chloride 103 mmol/L (98-107) 09/10/21 10:31 Carbon Dioxide 30 mmol/L (22-30) 09/10/21 10:31 Anion Gap 7 mmol/L 09/10/21 10:31 BUN 18 mg/dL (9-20) 09/10/21 10:31 Creatinine 0.90 mg/dL (0.66-1.25) 09/10/21 10:31 Est GFR (CKD-EPI)AfAm >90 (>60 ml/min/1.73 sqM) 09/10/21 10:31 Est GFR (CKD-EPI)NonAf >90 (>60 ml/min/1.73 sqM) 09/10/21 10:31 Glucose 91 mg/dL (74-99) 09/10/21 10:[address] Glu mg/dL 103 09/10/21 10:31 Hemoglobin A1c 5.2 % (0.0-6.0) 09/10/21 10:31 Calcium 9.6 mg/dL (8.4-10.2) 09/10/21 10:31 Total Bilirubin 1.2 mg/dL (0.2-1.3) 09/10/21 10:31 AST 36 U/L (17-59) 09/10/21 10:31 ALT 54 U/L (4-49) H 09/10/21 10:31 Alkaline Phosphatase 78 U/L (38-126) 09/10/21 10:31 Total Protein 7.4 g/dL (6.3-8.2) 09/10/21 10:31 Albumin 4.3 g/dL (3.5-5.0) 09/10/21 10:31 Triglycerides 132.00 mg/dL (0.00-149.00) 09/10/21 10:31 Cholesterol 212.00 mg/dL (0.00-200.00) H 09/10/21 10:31 LDL Cholesterol, Calc 141.3 mg/dL (0.0-131.0) H 09/10/21 10:31 VLDL Cholesterol, Calc 26.40 mg/dL (5.00-40.00) 09/10/21 10: HDL Cholesterol 44.30 mg/dL (40.00-60.00) 09/10/21 10:31 Cholesterol/HDL Ratio 4.79 Ratio 09/10/21 10: TSH 0.131 mIU/L (0.465-4.680) L 09/10/21 10:31 Urine Color Yellow 09/09/21 00:25 Urine Appearance Clear (Clear) 09/09/21 00:25 Urine pH 6.5 (5.0-8.0) 09/09/21 00:25 Ur Specific Boaz 1.015 (1.001-1.035) 09/09/21 00:25 Urine Protein Negative (Negative) 09/09/21 00:25 Urine Glucose (UA) Negative (Negative) 09/09/21 00:25 Urine Ketones Negative (Negative) 09/09/21 00:25 Urine Blood Negative (Negative) 09/09/21 00:25 Urine Nitrite Negative (Negative) 09/09/21 00:25 Urine Bilirubin Negative (Negative) 09/09/21 00:25 Urine Urobilinogen <2.0 mg/dL (<2.0) 09/09/21 00:25 Ur Leukocyte Esterase Trace (Negative) H 09/09/21 00:25 Urine RBC <1 /hpf (0-5) 09/09/21 00:25 Urine WBC 2 /hpf (0-5) 09/09/21 00:25 Urine Mucus Moderate /hpf (None) H 09/09/21 00:25 Urine Opiates Screen Not Detected (NotDetected) 09/09/21 00:25 Ur Oxycodone Screen Not Detected (NotDetected) 09/09/21 00:25 Urine Methadone Screen Not Detected (NotDetected) 09/09/21 00:25 Ur Propoxyphene Screen Not Detected (NotDetected) 09/09/21 00:25 Ur Barbiturates Screen Not Detected (NotDetected) 09/09/21 00:25 U Tricyclic Antidepress Not Detected (NotDetected) 09/09/21 00:25 Ur Phencyclidine Scrn Not Detected (NotDetected) 09/09/21 00:25 Ur Amphetamines Screen Detected (NotDetected) H 09/09/21 00:25 U Methamphetamines Scrn Not Detected (NotDetected) 09/09/21 00:25 U Benzodiazepines Scrn Not Detected (NotDetected) 09/09/21 00:25 Urine Cocaine Screen Not Detected (NotDetected) 09/09/21 00:25 U Marijuana (THC) Screen Detected (NotDetected) H 09/09/21 00:25 Coronavirus (PCR) Not Detected (Not Detectd) 09/09/21 00:27 Vital Signs Temp 97.7 F 09/16/21 01:15 Pulse 71 09/16/21 01:15 Resp 16 09/16/21 01:15 BP 111/79 09/16/21 01:15 Pulse Ox 99 09/14/21 06:43 FiO2 Intake & Output 09/15/21 09/16/21 09/16/21 18:59 06:59 18:59 Weight 66.7 kg Patient Condition at Discharge: Stable Plan - Discharge Summary Discharge Rx Participant: No New Discharge Prescriptions: New Sertraline [Zoloft] 150 mg PO DAILY 30 Days tab diphenhydrAMINE [Benadryl] 25 mg PO HS PRN 30 Days cap PRN Reason: Insomnia busPIRone HCl [Buspar] 30 mg PO BID PRN 30 Days tab PRN Reason: Anxiety traZODone HCL [Desyrel] 200 mg PO HS 30 Days tab Ibuprofen [Motrin] 600 mg PO Q6H PRN 30 Days tab PRN Reason: Moderate To Severe Pain No Action No Known Home Medications Discharge Medication List No Known Home Medications 09/08/21 [History] Ibuprofen [Motrin] 600 mg PO Q6H PRN 30 Days tab 09/16/21 [Rx] Sertraline [Zoloft] 150 mg PO DAILY 30 Days tab 09/16/21 [Rx] busPIRone HCl [Buspar] 30 mg PO BID PRN 30 Days tab 09/16/21 [Rx] diphenhydrAMINE [Benadryl] 25 mg PO HS PRN 30 Days cap 09/16/21 [Rx] traZODone HCL [Desyrel] 200 mg PO HS 30 Days tab 09/16/21 [Rx] Follow up Appointment(s)/Referral(s): [facility] [Outside] - 09/16/21 9:45 am [facility] [[facility]STAFF] - 1 Week Patient Instructions/Handouts: How to Stop Smoking (DC), Depression (DC), Polysubstance Abuse (ED) Activity/Diet/Wound Care/Special Instructions: Avoid the use of street drugs and alcohol. Take all prescriptions as prescribed. When you are in need of refills on your medications, please contact your medical provider and/or outpatient psychiatrist to have this done. Please go to scheduled outpatient appointment for aftercare treatment. If symptoms return or become worse, call the crisis line at and/or go to the nearest emergency room for evaluation. Discharge Disposition: OTHER INSTITUTION NOT DEFINED
--- NOTE | 2021-09-17 09:40 | CDI ---
Documentation Clarification Form Date: 09/17/2021 08:42:00 AM From: Nina Cordova Admit Date: 09/14/2021 11:10:00 PM Patient Name: Jose Dave Visit Number: [id number] Discharge Date: 09/15/2021 04:45:00 PM ATTENTION: The Clinical Documentation Specialists (CDI) and [facility] Coding Staff appreciate your assistance in clarifying documentation. Please respond to the clarification below the line at the bottom and electronically sign. The CDI & [facility] Coding staff will review the response and follow-up if needed. Please note: Queries are made part of the Legal Health Record. If you have any questions, please contact the author of this message via ITS. Dr. Trinity Willard The patients principal diagnosis the diagnosis that was chiefly responsible for the admission - has not been clearly identified and clarification is requested. The patient presented with SOB. Chest tightness, diaphoresis, elevated troponins. Nephrology documents volume overload. ER documents hypertensive urgency. H and P documents pulmonary edema. Please clarify the acute reason for patient's admit. 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 Briscoe [employer] chronic ulcer right foot In your professional opinion, can you please clarify which acute diagnosis, after study, was the reason chiefly responsible for the admission? [ ] Volume Overload [ ] Pulmonary Edema [ ] hypertensive urgency [ ] Other, please specify [ ] Unable to determine MTDD
== END 2021-09-16 10:37 | DRG 880 ==
LOC: EC 19:52 → 3MHU 09-09 01:26
PROVIDERS: ADMIT Psychiatry & Neurology Psychiatry; ATTEND Psychiatry & Neurology Psychiatry
DX: F99 Mental disorder, not otherwise specified (principal); F11.20 Opioid dependence, uncomplicated; F15.20 Other stimulant dependence, uncomplicated; F32.9 Major depressive disorder, single episode, unspecified; F41.9 Anxiety disorder, unspecified; G47.00 Insomnia, unspecified; F17.210 Nicotine dependence, cigarettes, uncomplicated; T40.2X2A Poisoning by other opioids, intentional self-harm, initial encounter; Z56.0 Unemployment, unspecified; Z59.00 Homelessness unspecified; Z79.899 Other long term (current) drug therapy; Z28.21 Immunization not carried out because of patient refusal; Z59.9 Problem related to housing and economic circumstances, unspecified; Z65.3 Problems related to other legal circumstances; Z63.5 Disruption of family by separation and divorce; Z71.51 Drug abuse counseling and surveillance of drug abuser; Z71.41 Alcohol abuse counseling and surveillance of alcoholic; Z71.89 Other specified counseling
CPT/HCPCS: 80053; 80061; 80306; 81001; 82075; 83036; 84443; 85025; 87635; 99285